=== PATIENT | female | born 1945 | race Caucasian/White ===

== ENCOUNTER 2016-12-17 21:48 | Inpatient (IN) | payer MEDICARE ==
[2016-12-17] MEDS ORDERED: SODIUM CHLORIDE 0.9% 500 ML IV STA (22:06)
[2016-12-17 22:44] LABS: Basophils # (A) 0.1 k/uL (0-0.2); Basophils % (A) 1 %; CH 31.3; CHCM 34.8; Eosinophils # (A) 0.2 k/uL (0-0.7); Eosinophils % (A) 1 %; HCT 46.3 % (34.0-46.0); HDW 2.27; HGB 15.3 gm/dL (11.4-16.0); Luc # (Auto) 0.19; Luc % (Auto) 2; Lymphocytes # (A) 1.8 k/uL (1.0-4.8); Lymphocytes % (A) 14 %; MCH 29.8 pg (25.0-35.0); MCV 90.4 fL (80.0-100.0); Mean Platelet Volume 6.6; Monocytes # (A) 0.8 k/uL (0-1.0); Monocytes % (A) 6 %; Neutrophils # (A) 9.7 k/uL (1.3-7.7); Neutrophils % (A) 77 %; RBC 5.12 m/uL (3.80-5.40); WBC 12.7 k/uL (3.8-10.6); WBC (Perox) 12.88
[2016-12-17 22:47] LABS: Appearance,Urine Clear (Clear); Bacteria,Urine Rare /hpf; Bilirubin,Urine Negative (Negative); Glucose,Urine (UA) Negative (Negative); Ketones,Urine Trace (Negative); Leukocyte Esterase,Urine Large (Negative); Mucus,Urine Rare /hpf; Nitrite,Urine Negative (Negative); Particle Count 1106; Protein,Urine Negative (Negative); RBC,Urine 1 /hpf (0-5); Specific Gravity,Urine 1.007 (1.001-1.035); Squamous Epithelial Cell,Urine <1 /hpf (0-4); UA Billing (MACRO vs. MICRO) MICRO; Urobilinogen,Urine <2.0 mg/dL (<2.0); WBC,Urine 33 /hpf (0-5)
--- NOTE | 2016-12-17 22:50 | XR ---
EXAM: XR KUB, 1 View CLINICAL HISTORY: Reason: abdominal pain TECHNIQUE: Frontal supine view of the abdomen/pelvis. COMPARISON: No relevant prior studies available. FINDINGS: Gastrointestinal tract: Unremarkable. No dilation. No abnormal abdominal calcifications. Bones/joints: Unremarkable. IMPRESSION: Normal KUB x-ray.
[2016-12-17] MEDS ORDERED: RX INFO: IV CONTRAST WAS GIVEN 1 EACH MISC MISCELLANE PRN (22:53)
--- NOTE | 2016-12-17 22:53 | ED ---
Abdominal Pain HPI - General Source: patient, RN notes reviewed Mode of arrival: ambulatory Limitations: no limitations <Garcia Alcantar - Last Filed: 12/18/16 00:54> <Nabil Khan - Last Filed: 12/18/16 01:16> - General Chief Complaint: Abdominal Pain Stated Complaint: Abd Pain Time Seen by Provider: 12/17/16 22:01 - History of Present Illness Initial Comments: This a 71-year-old female presents emergency Department chief complaint abdominal pain. Patient states she's had increase abdominal pain over the last 5 days. Patient states she has not had a bowel movement. Patient also has some urinary frequency. Patient's had a prior partial hysterectomy but no other abdominal surgeries. Patient denies fever or chills. She states she has upper abdominal pain this time. Patient states nothing since make her symptoms better or worse. She states the pain slightly radiates back and up. Patient denies any shortness breath, headache, dizziness. (Garcia Alcantar) - Related Data Home Medications Medication Instructions Recorded Confirmed Ibuprofen [Motrin] 200 mg PO Q6HR PRN 12/17/16 12/17/16 Allergies Allergy/AdvReac Type Severity Reaction Status Date / Time No Known Allergies Allergy Verified 12/17/16 21:59 Review of Systems ROS Other: All systems not noted in ROS Statement are negative. <Garcia Alcantar - Last Filed: 12/18/16 00:54> ROS Other: All systems not noted in ROS Statement are negative. <Nabil Khan - Last Filed: 12/18/16 01:16> ROS Statement: Those systems with pertinent positive or pertinent negative responses have been documented in the HPI. Past Medical History Past Medical History: No Reported History History of Any Multi-Drug Resistant Organisms: None Reported Past Surgical History: Hysterectomy Past Psychological History: No Psychological Hx Reported Smoking Status: Never smoker Past Alcohol Use History: None Reported Past Drug Use History: None Reported <Garcia Alcantar - Last Filed: 12/18/16 00:54> General Exam Limitations: no limitations General appearance: alert, in no apparent distress Head exam: Present: atraumatic, normocephalic, normal inspection Respiratory exam: Present: normal lung sounds bilaterally. Absent: respiratory distress, wheezes, rales, rhonchi, stridor Cardiovascular Exam: Present: regular rate, normal rhythm, normal heart sounds. Absent: systolic murmur, diastolic murmur, rubs, gallop, clicks GI/Abdominal exam: Present: soft, tenderness (Mild to moderate epigastric and right upper quadrant tenderness), normal bowel sounds. Absent: distended, guarding, rebound, rigid Back exam: Absent: CVA tenderness (R), CVA tenderness (L) Neurological exam: Present: alert, oriented X3, CN II-XII intact Skin exam: Present: warm, dry, intact, normal color. Absent: rash <Garcia Alcantar - Last Filed: 12/18/16 00:54> Course <Garcia Alcantar - Last Filed: 12/18/16 00:54> <Nabil Khan - Last Filed: 12/18/16 01:16> Vital Signs 12/17/16 12/17/16 21:51 23:40 Temperature 98.2 F 98.1 F Pulse Rate 78 77 Respiratory 20 16 Rate Blood Pressure 162/84 148/68 O2 Sat by Pulse 98 98 Oximetry - Reevaluation(s) Reevaluation #1: 12/18/16 00:31 At this point patient does have what appears to be acute cholecystitis with elevated white count and respirations greater than 20. Patient was started on antibiotics for possible sepsis. Lactic acid and blood culture will be obtained (Garcia Alcantar) 12/18/16 01:15 Patient reevaluated by myself, Dr. Khan. Patient does have mild epigastric/ right upper quadrant tenderness on exam. No guarding. Case discussed in detail with Dr. Barnett including CT results who will admit for Dr. Echols. IV antibiotics will be started. Patient updated. (Nabil Khan) Medical Decision Making - Lab Data Result diagrams: 12/17/16 22:30 12/17/16 22:30 <Garcia Alcantar - Last Filed: 12/18/16 00:54> - Lab Data Result diagrams: 12/17/16 22:30 12/17/16 22:30 <Nabil Khan - Last Filed: 12/18/16 01:16> - Lab Data Lab Results 12/17/16 12/17/16 12/17/16 Range/Units 22:30 22:30 22:30 WBC 12.7 H (3.8-10.6) k/uL RBC 5.12 (3.80-5.40) m/uL Hgb 15.3 (11.4-16.0) gm/dL Hct 46.3 H (34.0-46.0) % MCV 90.4 (80.0-100.0) fL MCH 29.8 (25.0-35.0) pg MCHC 33.0 (31.0-37.0) g/dL RDW 13.0 (11.5-15.5) % Plt Count 1016 H* (150-450) k/uL Neutrophils % 77 % Lymphocytes % 14 % Monocytes % 6 % Eosinophils % 1 % Basophils % 1 % Neutrophils # 9.7 H (1.3-7.7) k/uL Lymphocytes # 1.8 (1.0-4.8) k/uL Monocytes # 0.8 (0-1.0) k/uL Eosinophils # 0.2 (0-0.7) k/uL Basophils # 0.1 (0-0.2) k/uL Sodium 135 L (137-145) mmol/L Potassium 4.8 (3.5-5.1) mmol/L Chloride 103 (98-107) mmol/L Carbon Dioxide 22 (22-30) mmol/L Anion Gap 10 mmol/L BUN 11 (7-17) mg/dL Creatinine 0.80 (0.52-1.04) mg/dL Est GFR (MDRD) Af Amer >60 (>60 ml/min/1.73 sqM) Est GFR (MDRD) Non-Af >60 (>60 ml/min/1.73 sqM) Glucose 111 H (74-99) mg/dL Calcium 9.9 (8.4-10.2) mg/dL Total Bilirubin 0.7 (0.2-1.3) mg/dL AST 24 (14-36) U/L ALT 32 (9-52) U/L Alkaline Phosphatase 97 (38-126) U/L Troponin I <0.012 (0.000-0.034) ng/mL Total Protein 7.1 (6.3-8.2) g/dL Albumin 4.1 (3.5-5.0) g/dL Amylase 74 (30-110) U/L Lipase 167 (23-300) U/L Urine Color Urine Appearance (Clear) Urine pH (5.0-8.0) Ur Specific [place] (1.001-1.035) Urine Protein (Negative) Urine Glucose (UA) (Negative) Urine Ketones (Negative) Urine Blood (Negative) Urine Nitrite (Negative) Urine Bilirubin (Negative) Urine Urobilinogen (<2.0) mg/dL Ur Leukocyte Esterase (Negative) Urine RBC (0-5) /hpf Urine WBC (0-5) /hpf Ur Squamous Epith Cells (0-4) /hpf Urine Bacteria (None) /hpf Urine Mucus (None) /hpf 12/17/16 Range/Units 22:30 WBC (3.8-10.6) k/uL RBC (3.80-5.40) m/uL Hgb (11.4-16.0) gm/dL Hct (34.0-46.0) % MCV (80.0-100.0) fL MCH (25.0-35.0) pg MCHC (31.0-37.0) g/dL RDW (11.5-15.5) % Plt Count (150-450) k/uL Neutrophils % % Lymphocytes % % Monocytes % % Eosinophils % % Basophils % % Neutrophils # (1.3-7.7) k/uL Lymphocytes # (1.0-4.8) k/uL Monocytes # (0-1.0) k/uL Eosinophils # (0-0.7) k/uL Basophils # (0-0.2) k/uL Sodium (137-145) mmol/L Potassium (3.5-5.1) mmol/L Chloride (98-107) mmol/L Carbon Dioxide (22-30) mmol/L Anion Gap mmol/L BUN (7-17) mg/dL Creatinine (0.52-1.04) mg/dL Est GFR (MDRD) Af Amer (>60 ml/min/1.73 sqM) Est GFR (MDRD) Non-Af (>60 ml/min/1.73 sqM) Glucose (74-99) mg/dL Calcium (8.4-10.2) mg/dL Total Bilirubin (0.2-1.3) mg/dL AST (14-36) U/L ALT (9-52) U/L Alkaline Phosphatase (38-126) U/L Troponin I (0.000-0.034) ng/mL Total Protein (6.3-8.2) g/dL Albumin (3.5-5.0) g/dL Amylase (30-110) U/L Lipase (23-300) U/L Urine Color Light Yellow Urine Appearance Clear (Clear) Urine pH 6.0 (5.0-8.0) Ur Specific [place] 1.007 (1.001-1.035) Urine Protein Negative (Negative) Urine Glucose (UA) Negative (Negative) Urine Ketones Trace H (Negative) Urine Blood Negative (Negative) Urine Nitrite Negative (Negative) Urine Bilirubin Negative (Negative) Urine Urobilinogen <2.0 (<2.0) mg/dL Ur Leukocyte Esterase Large H (Negative) Urine RBC 1 (0-5) /hpf Urine WBC 33 H (0-5) /hpf Ur Squamous Epith Cells <1 (0-4) /hpf Urine Bacteria Rare H (None) /hpf Urine Mucus Rare H (None) /hpf 12/17/16 22:53 EKG performed at 22:30 normal sinus rhythm with a rate of 75 WA interval 136 QRS duration 72 QT/QTC 392/437 (Garcia Alcantar) Disposition Time of Disposition: 00:54 <Garcia Alcantar - Last Filed: 12/18/16 00:54> <Nabil Khan - Last Filed: 12/18/16 01:16> Clinical Impression: Cholecystitis, acute with cholelithiasis Disposition: ADMITTED IP TO THIS [facility] Condition: Fair Referrals: Henry Echols MD [Primary Care Provider] - 1-2 days
[2016-12-17 23:00] LABS: ALT 32 U/L (9-52); AST 24 U/L (14-36); Alkaline Phosphatase 97 U/L (38-126); Amylase 74 U/L (30-110); Anion Gap 10 mmol/L; Blood Urea Nitrogen 11 mg/dL (7-17); Calcium 9.9 mg/dL (8.4-10.2); Carbon Dioxide 22 mmol/L (22-30); Chloride 103 mmol/L (98-107); Glucose 111 mg/dL (74-99); Non-African American GFR(MDRD) >60 (>60 ml/min/1.73 sqM); Potassium 4.8 mmol/L (3.5-5.1); Sodium 135 mmol/L (137-145); Total Bilirubin 0.7 mg/dL (0.2-1.3); Total Protein 7.1 g/dL (6.3-8.2)
--- NOTE | 2016-12-18 00:09 | CT ---
EXAM: CT Abdomen and Pelvis With Intravenous Contrast CLINICAL HISTORY: Reason: Pain TECHNIQUE: Axial computed tomography images of the abdomen and pelvis with intravenous contrast. DLP is 630.40 mGy-cm. This CT exam was performed using one or more of the following dose reduction techniques: automated exposure control, adjustment of the mA and/or kV according to patient size, and/or use of iterative reconstruction technique. COMPARISON: No relevant prior studies available. FINDINGS: Lower thorax: No acute findings. ABDOMEN: Liver: Unremarkable. No mass. Gallbladder and bile ducts: Large 4.1 x 2.6 cm gallstone. The gallbladder is distended. Gallbladder wall thickening noted with possible pericholecystic fluid. Pancreas: Unremarkable. No mass. No ductal dilation. Spleen: Unremarkable. No splenomegaly. Adrenals: Unremarkable. No mass. Kidneys and ureters: Unremarkable. No solid mass. No hydronephrosis. Stomach and bowel: Stool throughout the colon. No obstruction. No mucosal thickening. Appendix: Normal appendix. PELVIS: Bladder: Unremarkable. No mass. Reproductive: Unremarkable as visualized. ABDOMEN and PELVIS: Intraperitoneal space: Unremarkable. No free air. No significant fluid collection. 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 No acute fracture. No dislocation. Soft tissues: Unremarkable. Vasculature: Unremarkable. No abdominal aortic aneurysm. Lymph nodes: Unremarkable. No enlarged lymph nodes. IMPRESSION: Cholelithiasis with gallbladder distention, wall thickening, and possible pericholecystic fluid. Findings suspicious for acute cholecystitis. Correlate clinically.
[2016-12-18] MEDS ORDERED: PIPERACILLIN-TAZOBACTAM 3.375 GM in DEXTROSE/WATER 1 50ML.BAG IVPB STA (00:31)
[2016-12-18] MEDS ORDERED: NALOXONE 0.4 MG/ML 1 ML VIAL IV PRN (00:55)
[2016-12-18] MEDS ORDERED: ONDANSETRON 4 MG/2 ML VIAL IVP STA (01:07)
[2016-12-18] MEDS: SODIUM CHLORIDE 0.9% 1,000 ML IV SCH ×3 (01:11→17:47)
[2016-12-18 01:58] VITALS: BMI 27.6
[2016-12-18] MEDS ORDERED: HYDROmorphone 1 MG/ML 1 ML SYRINGE IVP PRN (05:47)
[2016-12-18] MEDS: PIPERACILLIN-TAZOBACTAM 3.375 GM in DEXTROSE/WATER 1 50ML.BAG IVPB SCH ×3 (07:52→23:38)
[2016-12-18] MEDS: ONDANSETRON 4 MG/2 ML VIAL IVP PRN ×2 (08:59→15:35)
[2016-12-18] MEDS: HEPARIN SODIUM,PORCINE 5,000 UNIT/ML 1 ML VIAL SQ SCH ×3 (09:22→23:38)
[2016-12-18] MEDS ORDERED: METOCLOPRAMIDE 5 MG/ML 2 ML VIAL IVP PRN (09:25)
--- NOTE | 2016-12-18 09:27 | P.GSHP ---
<Radha Tran - Last Filed: 12/18/16 09:11> History of Present Illness H&P Date: 12/18/16 Chief Complaint: Abdominal pain 71-year-old female presented on the day of admission to the emergency room to be evaluated for a chief complaint of having progressive right upper quadrant abdominal pain onset 5 days prior. Patient stated over the last several days the pain in her abdomen had became more symptomatic increased. Patient states she became concerned and presented to the emergency room. Patient denied any fever chills. Patient stated the pain initially occurred in the right upper quadrant of the abdomen radiating across to the right upper chest Patient stated there was a sensation of nausea no active emesis. . Denied any shortness of breath dizziness lightheadedness or chest pain when questioning. Patient has no significant past medical history. Patient states she's aware that her platelets have been elevated and she's had a discussion with her primary care provider in the office the decision was to continue to monitor the platelet count Patient states she takes no prescription medication uses [id number] Motrin as needed. Patient's past surgical history of partial hysterectomy. - Review of Systems Comment: Essentially unremarkable except as mentioned in the present illness Past Medical History Past Medical History: No Reported History History of Any Multi-Drug Resistant Organisms: None Reported Past Surgical History: Hysterectomy Past Psychological History: No Psychological Hx Reported Smoking Status: Never smoker Past Alcohol Use History: None Reported Past Drug Use History: None Reported Medications and Allergies Home Medications Medication Instructions Recorded Confirmed Type Ibuprofen [Motrin] 200 mg PO Q6HR PRN 12/17/16 12/17/16 History Allergies Allergy/AdvReac Type Severity Reaction Status Date / Time No Known Allergies Allergy Verified 12/17/16 21:59 Surgical - Exam Vital Signs Temp Pulse Resp BP Pulse Ox 98.2 F 78 20 162/84 98 12/17/16 21:51 12/17/16 21:51 12/17/16 21:51 12/17/16 21:51 12/17/16 21:51 GENERAL APPEARANCE: 71-year-old female patient is alert, oriented 3, in no acute distress. Patient reports having sensation of nausea this morning no emesis VITAL SIGNS: Reviewed HEENT: Head is normocephalic and atraumatic. Pupils are equal and reactive. The nares are patent. Oropharynx is clear without lesions. NECK: Supple without lymphadenopathy. Traches midline. HEART: S1, S2. Regular rate and rhythm. Denying chest pain no murmur noted LUNGS: No crackles or wheezes are heard. Adequate air movement bilaterally on room air sats are 97% ABDOMEN: Soft, slight tenderness to the right upper quadrant nondistended with good bowel sounds. No peritoneal signs. No palpable organomegaly or masses. EXTREMITIES: Normal skin color and turgor. No cyanosis, rash, ulceration, clubbing or edema. Radial pedal pulses are 2/4 bilaterally. NEUROLOGICAL: No focal deficits. Strength and sensation are grossly intact. Results - Labs 12/17/16 22:30 12/17/16 22:30 Abnormal Lab Results - Last 24 Hours (Table) 12/17/16 12/17/16 12/17/16 Range/Units 22:30 22:30 22:30 WBC 12.7 H (3.8-10.6) k/uL Hct 46.3 H (34.0-46.0) % Plt Count 1016 H* (150-450) k/uL Neutrophils # 9.7 H (1.3-7.7) k/uL Sodium 135 L (137-145) mmol/L Glucose 111 H (74-99) mg/dL Urine Ketones Trace H (Negative) Ur Leukocyte Esterase Large H (Negative) Urine WBC 33 H (0-5) /hpf Urine Bacteria Rare H (None) /hpf Urine Mucus Rare H (None) /hpf Diabetes panel 12/17/16 Range/Units 22:30 Sodium 135 L (137-145) mmol/L Potassium 4.8 (3.5-5.1) mmol/L Chloride 103 (98-107) mmol/L Carbon Dioxide 22 (22-30) mmol/L BUN 11 (7-17) mg/dL Creatinine 0.80 (0.52-1.04) mg/dL Glucose 111 H (74-99) mg/dL Calcium 9.9 (8.4-10.2) mg/dL AST 24 (14-36) U/L ALT 32 (9-52) U/L Alkaline Phosphatase 97 (38-126) U/L Total Protein 7.1 (6.3-8.2) g/dL Albumin 4.1 (3.5-5.0) g/dL Calcium panel 12/17/16 Range/Units 22:30 Calcium 9.9 (8.4-10.2) mg/dL Albumin 4.1 (3.5-5.0) g/dL Pituitary panel 12/17/16 Range/Units 22:30 Sodium 135 L (137-145) mmol/L Potassium 4.8 (3.5-5.1) mmol/L Chloride 103 (98-107) mmol/L Carbon Dioxide 22 (22-30) mmol/L BUN 11 (7-17) mg/dL Creatinine 0.80 (0.52-1.04) mg/dL Glucose 111 H (74-99) mg/dL Calcium 9.9 (8.4-10.2) mg/dL Adrenal panel 12/17/16 Range/Units 22:30 Sodium 135 L (137-145) mmol/L Potassium 4.8 (3.5-5.1) mmol/L Chloride 103 (98-107) mmol/L Carbon Dioxide 22 (22-30) mmol/L BUN 11 (7-17) mg/dL Creatinine 0.80 (0.52-1.04) mg/dL Glucose 111 H (74-99) mg/dL Calcium 9.9 (8.4-10.2) mg/dL Total Bilirubin 0.7 (0.2-1.3) mg/dL AST 24 (14-36) U/L ALT 32 (9-52) U/L Alkaline Phosphatase 97 (38-126) U/L Total Protein 7.1 (6.3-8.2) g/dL Albumin 4.1 (3.5-5.0) g/dL Assessment and Plan Plan: Impression Present on admission right upper quadrant pain suspect due to acute cholecystitis Present on admission thrombocytosis suspect reactive chronic CAT scan abdomen pelvis showed cholelithiasis with gallbladder distention wall thickening and possible pericholecystic fluid suspicious for acute cholecystitis with a large gallstone noted Present on admission leukocytosis suspect reactive Plan Pain control IV fluid for hydration DVT and GI prophylaxis Continue IV Zosyn as ordered Repeat a CBC in the morning Consult hematology for thrombocytosis Keep nothing by mouth scheduled this morning for a lap possible open cholecystectomy The plan was discussed with the patient questions answered The above impression and plan of care have been discussed and directed by signing physician. Radha Tran nurse practitioner acting as scribe for signing physician. Time with Patient: Greater than 30 <Kansakar,Cyndi - Last Filed: 12/18/16 09:40> Surgical - Exam Vital Signs Temp Pulse Resp BP Pulse Ox 98.2 F 78 20 162/84 98 12/17/16 21:51 12/17/16 21:51 12/17/16 21:51 12/17/16 21:51 12/17/16 21:51 Results - Labs 12/17/16 22:30 12/17/16 22:30 Abnormal Lab Results - Last 24 Hours (Table) 12/17/16 12/17/16 12/17/16 Range/Units 22:30 22:30 22:30 WBC 12.7 H (3.8-10.6) k/uL Hct 46.3 H (34.0-46.0) % Plt Count 1016 H* (150-450) k/uL Neutrophils # 9.7 H (1.3-7.7) k/uL Sodium 135 L (137-145) mmol/L Glucose 111 H (74-99) mg/dL Urine Ketones Trace H (Negative) Ur Leukocyte Esterase Large H (Negative) Urine WBC 33 H (0-5) /hpf Urine Bacteria Rare H (None) /hpf Urine Mucus Rare H (None) /hpf Diabetes panel 12/17/16 Range/Units 22:30 Sodium 135 L (137-145) mmol/L Potassium 4.8 (3.5-5.1) mmol/L Chloride 103 (98-107) mmol/L Carbon Dioxide 22 (22-30) mmol/L BUN 11 (7-17) mg/dL Creatinine 0.80 (0.52-1.04) mg/dL Glucose 111 H (74-99) mg/dL Calcium 9.9 (8.4-10.2) mg/dL AST 24 (14-36) U/L ALT 32 (9-52) U/L Alkaline Phosphatase 97 (38-126) U/L Total Protein 7.1 (6.3-8.2) g/dL Albumin 4.1 (3.5-5.0) g/dL Calcium panel 12/17/16 Range/Units 22:30 Calcium 9.9 (8.4-10.2) mg/dL Albumin 4.1 (3.5-5.0) g/dL Pituitary panel 12/17/16 Range/Units 22:30 Sodium 135 L (137-145) mmol/L Potassium 4.8 (3.5-5.1) mmol/L Chloride 103 (98-107) mmol/L Carbon Dioxide 22 (22-30) mmol/L BUN 11 (7-17) mg/dL Creatinine 0.80 (0.52-1.04) mg/dL Glucose 111 H (74-99) mg/dL Calcium 9.9 (8.4-10.2) mg/dL Adrenal panel 12/17/16 Range/Units 22:30 Sodium 135 L (137-145) mmol/L Potassium 4.8 (3.5-5.1) mmol/L Chloride 103 (98-107) mmol/L Carbon Dioxide 22 (22-30) mmol/L BUN 11 (7-17) mg/dL Creatinine 0.80 (0.52-1.04) mg/dL Glucose 111 H (74-99) mg/dL Calcium 9.9 (8.4-10.2) mg/dL Total Bilirubin 0.7 (0.2-1.3) mg/dL AST 24 (14-36) U/L ALT 32 (9-52) U/L Alkaline Phosphatase 97 (38-126) U/L Total Protein 7.1 (6.3-8.2) g/dL Albumin 4.1 (3.5-5.0) g/dL Assessment and Plan Plan: Patient examined. Plan for lap rajiv possible open. Chronic thrombocytosis.Hematology consult.VTE prophylaxis
[2016-12-18] MEDS: PANTOPRAZOLE 40 MG/10 ML VIAL IVP SCH (09:46)
[2016-12-18] MEDS ORDERED: IV FLUID CONTINUATION 1,000 ML IV ONE (09:59)
[2016-12-18] MEDS ORDERED: DEXAMETHASONE SOD PHOS (MDV) 100 MG/10 ML VIAL IVP ONE (10:06)
[2016-12-18] MEDS ORDERED: PROPOFOL 10 MG/ML 20 ML VIAL IV ONE (10:30)
[2016-12-18] MEDS ORDERED: GLYCOPYRROLATE 0.2 MG/ML 2 ML VIAL ONE (10:30)
[2016-12-18] MEDS ORDERED: SUCCINYLCHOLINE CHLORIDE 100 MG/5 ML SYR IV ONE (10:30)
[2016-12-18] MEDS ORDERED: fentaNYL (PF) 50 MCG/ML 2 ML AMP ONE (10:30)
[2016-12-18] MEDS ORDERED: NEOSTIGMINE 1 MG/ML 10 ML VIAL ONE (10:30)
[2016-12-18] MEDS ORDERED: ROCURONIUM BROMIDE 10 MG/ML 10 ML VIAL IV ONE (10:30)
[2016-12-18] MEDS ORDERED: KETOROLAC 30 MG/ML 1 ML VIAL ONE (10:30)
[2016-12-18] MEDS ORDERED: MIDAZOLAM 2 MG/2 ML VIAL ONE (10:30)
[2016-12-18] MEDS ORDERED: LIDOCAINE 1% INJ 10MG/ML (20 ML MDV) ONE (10:30)
[2016-12-18] MEDS ORDERED: LACTATED RINGERS 1,000 ML IV ONE (10:40)
[2016-12-18] MEDS ORDERED: BUPIVACAIN-EPI 0.5%-1:200,000 30 ML VIAL SQ ONE (10:55)
[2016-12-18] MEDS ORDERED: HYDROcodone/APAP 5-325MG 1 EACH TAB PO PRN (16:42)
[2016-12-19] MEDS: SODIUM CHLORIDE 0.9% 1,000 ML IV SCH ×2 (01:41→08:03)
[2016-12-19] MEDS: PIPERACILLIN-TAZOBACTAM 3.375 GM in DEXTROSE/WATER 1 50ML.BAG IVPB SCH (07:46)
[2016-12-19] MEDS: HEPARIN SODIUM,PORCINE 5,000 UNIT/ML 1 ML VIAL SQ SCH (07:46)
[2016-12-19] MEDS: PANTOPRAZOLE 40 MG/10 ML VIAL IVP SCH (07:46)
[2016-12-19 07:48] LABS: CHCM 33.4; HCT 36.5 % (34.0-46.0); HDW 2.28; HGB 12.6 gm/dL (11.4-16.0); MCH 32.4 pg (25.0-35.0); MCHC 34.7 g/dL (31.0-37.0); MCV 93.4 fL (80.0-100.0); Mean Platelet Volume 6.8; RBC 3.91 m/uL (3.80-5.40); RDW 12.8 % (11.5-15.5); WBC 12.6 k/uL (3.8-10.6)
[2016-12-19 07:58] VITALS: BP 126/56; PULSE 100; RESP 13; TEMP 97.4
--- NOTE | 2016-12-19 08:28 | P.DS ---
Providers Date of admission: 12/18/16 01:15 Attending physician: Cyndi Barnett Consults: 12/18/16 09:14 Consult Physician Urgent Consulting Provider: Emeterio Hall Consult Reason/Comments: Elevated platelet count Do you want consulting provider notified?: Yes Primary care physician: Henry Echols [facility] Course: 71 female admitted to the emergency room to be evaluated for chief complaint of having progressive right upper quadrant pain onset 5 days prior. Patient stated the pain became more symptomatic. A sensation of nausea no active emesis no fever chills.. Patient has no significant past medical history except that she states "been told my platelets have been elevated in the past. , On admission the platelets were 1016. Consultation was requested Dr. Hall hematology did evaluate the patient with recommendations aspirin 81 mg daily patient was admitted to the services of the attending. Patient is a CAT scan of the abdomen pelvis did show cholelithiasis with gallbladder distention wall thickening possible pericholecystic fluid suspicious for acute cholecystitis with a large gallstone noted. Patient elected to proceed with a lap cholecystectomy done on the 18 of December. There were no postop events. Impression discharge diagnosis Present on admission right upper quadrant pain suspect due to acute cholecystitis Present on admission thrombocytosis suspect reactive chronic CAT scan abdomen pelvis showed cholelithiasis with gallbladder distention wall thickening and possible pericholecystic fluid suspicious for acute cholecystitis with a large gallstone noted Present on admission leukocytosis suspect reactive Status post December 18 laparoscopic cholecystectomy The above impression and plan of care have been discussed and directed by signing physician. Radha Tran nurse practitioner acting as scribe for signing physician. Patient Condition at Discharge: Fair Plan - Discharge Summary New Discharge Prescriptions: New Aspirin [Adult Low Dose Aspirin EC] 81 mg PO DAILY #30 tablet. Continue Ibuprofen [Motrin] 200 mg PO Q6HR PRN PRN Reason: Pain Discharge Medication List Ibuprofen [Motrin] 200 mg PO Q6HR PRN 12/17/16 [History] Aspirin [Adult Low Dose Aspirin EC] 81 mg PO DAILY #30 tablet. 12/19/16 [Rx] Follow up Appointment(s)/Referral(s): Henry Echols MD [Primary Care Provider] - 1-2 days Emeterio Hall MD [STAFF PHYSICIAN] - 1 Week Cyndi Barnett MD [STAFF PHYSICIAN] - 2 Weeks Activity/Diet/Wound Care/Special Instructions: No lifting over 10 pounds Shower daily No tub baths Notified attending of any redness abdominal pain fever chills Discharge Disposition: HOME SELF-CARE
--- NOTE | 2016-12-20 01:08 | P.CONS ---
History of Present Illness - Reason for Consult Consult date: 12/19/16 Elevated platelet count - History of Present Illness The patient is a 71-year-old lady, overall in good health. She was admitted to the hospital on 12/17/16, with complains of right upper abdominal pain that started about 5-6 days ago. This had progressively gotten worse, causing her to come to the emergency room. Abdominal imaging was suggestive of cholecystitis. The patient's CBC revealed a platelet count of greater than 1 million. She underwent cholecystectomy which she tolerated well. The consult was placed for evaluation of the elevated platelet count. The patient states that her platelets have been elevated now for several months at least. She is not aware of the exact value but had discussed this with her PCP and had opted for monitoring alone. She denies any history of venous or arterial thrombo embolism, or unusual bleeding/bruising. Review of Systems Constitutional: Denies chills, Denies fever Eyes: denies blurred vision, denies pain Ears: deny: decreased hearing, ear discharge, earache, tinnitus Ears, nose, mouth and throat: Denies headache, Denies sore throat Cardiovascular: Denies chest pain, Denies shortness of breath Respiratory: Denies cough Gastrointestinal: Reports as per HPI, Reports abdominal pain, Reports dyspepsia (Mild indigestion symptoms, off and on for some months now.) Genitourinary: Denies dysuria, Denies hematuria Menstruation: Reports postmenopausal Musculoskeletal: Denies myalgias Integumentary: Denies pruritus, Denies rash Neurological: Denies numbness, Denies weakness Psychiatric: Denies anxiety, Denies depression Endocrine: Denies fatigue, Denies weight change Hematologic/Lymphatic: Reports as per HPI Past Medical History Past Medical History: No Reported History History of Any Multi-Drug Resistant Organisms: None Reported Past Surgical History: Hysterectomy Past Psychological History: No Psychological Hx Reported Smoking Status: Never smoker Past Alcohol Use History: None Reported Past Drug Use History: None Reported Medications and Allergies Home Medications Medication Instructions Recorded Confirmed Type Ibuprofen [Motrin] 200 mg PO Q6HR PRN 12/17/16 12/17/16 History Aspirin [Adult Low Dose Aspirin EC] 81 mg PO DAILY #30 tablet. 12/19/16 Rx Allergies Allergy/AdvReac Type Severity Reaction Status Date / Time No Known Allergies Allergy Verified 12/17/16 21:59 Physical Exam Vitals: Vital Signs Temp Pulse Pulse Pulse Resp BP Pulse Ox 12/19/16 08:49 100 12/19/16 07:56 97.4 F L 100 13 126/56 12/19/16 00:28 96.1 F L 79 16 132/62 97 12/18/16 20:10 97.0 F L 68 16 140/65 99 12/18/16 14:45 66 16 105/55 95 12/18/16 14:30 65 16 125/59 98 12/18/16 14:15 59 L 16 105/65 98 12/18/16 14:00 64 16 113/72 98 12/18/16 13:45 62 16 108/65 100 12/18/16 13:30 57 L 16 116/68 99 12/18/16 13:15 63 16 123/54 97 12/18/16 13:00 97.7 F 61 16 142/88 93 L 12/18/16 12:45 72 18 160/71 100 12/18/16 12:31 18 149/67 97 12/18/16 12:16 56 L 16 111/56 100 12/18/16 12:01 98.0 F 72 14 111/54 100 12/18/16 10:01 97.5 F L 64 18 130/67 96 12/18/16 09:30 97.4 F L 63 15 110/66 99 Intake and Output 12/18/16 12/19/16 12/19/16 22:59 06:59 14:59 Intake Total 500 1500 Balance 500 1500 Intake: Intake, IV Titration 1000 Amount Sodium Chloride 0.9% 1, 1000 000 ml @ 125 mls/hr IV . Q8H [facility] Rx#:[id number] Oral 500 500 Other: Voiding Method Toilet # Voids 1 2 - Constitutional General appearance: no acute distress - EENT Eyes: EOMI, PERRLA ENT: hearing grossly normal, normal oropharynx - Neck Neck: no lymphadenopathy - Respiratory Respiratory: bilateral: CTA - Cardiovascular Rhythm: regular Heart sounds: normal: S1, S2 - Gastrointestinal General gastrointestinal: normal bowel sounds, soft - Integumentary Integumentary: normal - Neurologic Neurologic: CNII-XII intact - Musculoskeletal Musculoskeletal: strength equal bilaterally - Psychiatric Psychiatric: A&O x's 3, appropriate affect Results CBC & Chem 7: 12/19/16 07:17 12/17/16 22:30 Labs: Abnormal Lab Results - Last 24 Hours (Table) 12/19/16 Range/Units 07:17 WBC 12.6 H (3.8-10.6) k/uL Plt Count 737 H (150-450) k/uL Microbiology - Last 24 Hours (Table) 12/18/16 01:01 Blood Culture - Preliminary Blood No Growth after 24 hours Abdominal x-ray: report reviewed CT scan - pelvis: report reviewed US - abdomen: report reviewed Assessment and Plan (1) Thrombocytosis Narrative/Plan: The patient has fairly profound thrombocytosis. According to her this has been present now for several months at least as she is not aware of her values in the outpatient setting. Those are not available to us at this time either. The possible differential discussed in detail with her. Persistent thrombocytosis were several months with no apparent cause, as most suggestive for a primary myeloproliferative disorder, specifically Essential thrombocytosis. It was discussed with her, that though technically of malignancy, this is fairly easy to treat. With platelet lowering therapy and antiplatelet agents, the main morbidity which is due to thrombolysis on can be drastically reduced. She was therefore willing for further workup to try to establish the diagnosis. This will be done as an outpatient. Requisition for Yariel-2 mutation testing, and iron studies were given to her. She will follow-up in the office in the next 2-3 weeks. In the meantime she will start on baby aspirin. Her platelet count has already started dropping into the 700 range, and was 737 today. It is possible that her baseline platelet counts are lower than her current values, and the present increases transient, from her baseline, due to cholecystitis and surgery. Even if essential thrombocytosis is confirmed, the patient may not need specific platelet lowering therapy, if her baseline counts are less than 6 -700 , but can be managed with antiplatelet agent alone Status: Acute Plan: Case was clinically discussed with the admitting service. From our Standpoint the patient is okay to be discharged, on baby aspirin.
[2016-12-20] MEDS ORDERED: PANTOPRAZOLE 40 MG TABLET PO SCH (07:30)
--- NOTE | 2017-01-18 12:45 | P.OP ---
Date of Procedure: 12/18/16 Preoperative Diagnosis: Acute on chronic calculous cholecystitis Postoperative Diagnosis: Same Procedure(s) Performed: Laparoscopic cholecystectomy Anesthesia: YAS, local Surgeon: Cyndi Barnett Pathology: other Condition: stable Disposition: PACU Indications for Procedure: 71 years old female presents with acute on chronic cholecystitis. Informed consent obtained for laparoscopic cholecystectomy possible open. Operative Findings: Acute on chronic cholecystitis Description of Procedure: The patient was brought to the operating room and placed in supine position with both arms out. General anesthesia with endotracheal intubation was performed as per anesthesia team. Chlorhexidine was used to prep the abdomen followed by application of sterile drapes. A timeout was performed to verify correct patient and correct procedure. Patient was confirmed to receive perioperative IV antibiotics , heparin 5000 units subcutaneous injection and bilateral SCDs were placed. A 5 mm skin incision was made below the left costal margin at the anterior axillary line. A Veress needle was inserted and pneumoperitoneum was established to a pressure of 15 mmHg. A 5 mm Optiview trocar was loaded on a 5 mm 30 laparoscope and the peritoneal cavity was entered under direct vision using the Optiview technique. Additional 5 mm trocar was placed in the supraumbilical location and two 5 mm trocars along the right subcostal margin. The left 5 mm trocar was upsized to 10mm. The patient was placed in reverse Trendelenburg with right side up. The fundus of the gallbladder was grasped with an atraumatic grasper and was retracted over the dome of the liver. The infundibulum was grasped with an atraumatic grasper and retracted towards the pelvis to expose the Calot's triangle. Lateral and medial peritoneal attachment of the gallbladder bladder was dissected. Circumferential dissection was carried out around the cystic artery and the cystic duct to obtain adequate length for clip application. All the surrounding fibrofatty tissue were removed. Critical view was obtained with cystic duct and cystic artery as the only two structures entering the gallbladder. Two clips were applied on the patient's side and one on the specimen side on the cystic duct first followed by the cystic artery. Endoshears were used to divide the cystic duct and the cystic artery. The gallbladder was taken off the liver bed using a L-hook. It was placed in an endocatch specimen bag and removed through the 10mm port. The gallbladder was passed off as a specimen. The abdominal cavity was inspected. The clips on the cystic duct and cystic artery stump were intact and no bleeding noted from the liver bed. All the trocar sites were examined and no evidence of bleeding. The 10mm port site was closed with two transfascial sutures of 0 Vicryl using a Richard Naomi device. The pneumoperitoneum was evacuated and all the trocars were removed. Local anesthetic was infiltrated along the trocar sites and incisions were closed using 4-0 Monocryl followed by application of Dermabond skin glue. The sponge, instrument and needle count were correct x2. Patient was extubated and taken to post anesthesia care unit in stable condition.
== END 2016-12-19 12:41 | disposition home or self-care (01) | DRG 419 ==
LOC: EC 21:48 → 3SUR 12-18 01:15
PROVIDERS: ADMIT Surgery; ATTEND Surgery
PROC: 0FT44ZZ Resection of Gallbladder, Percutaneous Endoscopic Approach (ICD-10-PCS; principal; 2016-12-18 12:10)
DX: K80.00 Calculus of gallbladder with acute cholecystitis without obstruction (principal); D75.89 Other specified diseases of blood and blood-forming organs; Z90.710 Acquired absence of both cervix and uterus; Z79.82 Long term (current) use of aspirin; Z79.1 Long term (current) use of non-steroidal anti-inflammatories (NSAID)
CPT/HCPCS: 36415; 74000; 74177; 80053; 81001; 82150; 83605; 83690; 84484; 85025; 85027; 87040; 88304; 93005; 96365; 96375; 99285

== ENCOUNTER → 2016-12-25 | Outpatient (CLI) | payer MEDICARE ==
[2016-12-25 16:18] LABS: Basophils # (A) 0.1 k/uL (0-0.2); Basophils % (A) 1 %; CHCM 32.3; Eosinophils # (A) 0.2 k/uL (0-0.7); Eosinophils % (A) 3 %; HCT 45.2 % (34.0-46.0); HDW 2.26; HGB 14.9 gm/dL (11.4-16.0); Luc # (Auto) 0.16; Luc % (Auto) 2; Lymphocytes # (A) 1.8 k/uL (1.0-4.8); Lymphocytes % (A) 21 %; MCH 30.7 pg (25.0-35.0); Mean Platelet Volume 6.2; Monocytes # (A) 0.5 k/uL (0-1.0); Monocytes % (A) 5 %; Neutrophils # (A) 5.9 k/uL (1.3-7.7); Neutrophils % (A) 68 %; RBC 4.86 m/uL (3.80-5.40); RDW 12.6 % (11.5-15.5); WBC 8.6 k/uL (3.8-10.6); WBC (Perox) 8.69
[2016-12-25 16:22] LABS: ALT 61 U/L (9-52); AST 34 U/L (14-36); Alkaline Phosphatase 93 U/L (38-126); Amylase 82 U/L (30-110); Anion Gap 11 mmol/L; Blood Urea Nitrogen 9 mg/dL (7-17); Carbon Dioxide 24 mmol/L (22-30); Chloride 103 mmol/L (98-107); Glucose 113 mg/dL (74-99); Non-African American GFR(MDRD) >60 (>60 ml/min/1.73 sqM); Potassium 4.6 mmol/L (3.5-5.1); Sodium 138 mmol/L (137-145); Total Bilirubin 0.3 mg/dL (0.2-1.3); Total Protein 7.1 g/dL (6.3-8.2)
== END | disposition home or self-care (01) ==
LOC: LABWHC1 15:25
PROVIDERS: ATTEND Physician Assistant
DX: D47.3 Essential (hemorrhagic) thrombocythemia (principal); K80.80 Other cholelithiasis without obstruction
CPT/HCPCS: 36415; 80053; 81270; 82150; 82728; 83690; 85025

== ENCOUNTER 2019-08-15 09:33 | Emergency (ER) | payer MEDICARE ==
[2019-08-15 09:43] VITALS: BP 136/75; PULSE 93; RESP 18; TEMP 97.6
--- NOTE | 2019-08-15 10:05 | ED ---
Upper Extremity HPI - General Chief Complaint: Extremity Injury, Upper Stated Complaint: pain in L arm -shoulder to wrist Time Seen by Provider: 08/15/19 09:45 Source: patient, RN notes reviewed, old records reviewed Mode of arrival: ambulatory Limitations: no limitations - History of Present Illness Initial Comments: Patient is a 73-year-old female presents return states 2 months of left shoulder pain, worse with range of motion of her head. She reports symptoms started after she was moving a window approximately 2 months ago. She stated that she's Lantrip on Sunday and felt that she needed to have any answers questions the pain today. She's been taking Motrin for pain. She initially thought she had tendinitis she also frequently types sitting on her computer frequently. Patient states that she has no chest pain shortness breath nausea or vomiting. - Related Data Home Medications Medication Instructions Recorded Confirmed Ibuprofen [Motrin] 200 mg PO Q6HR PRN 12/17/16 12/17/16 Previous Rx's Medication Instructions Recorded Aspirin [Adult Low Dose Aspirin EC] 81 mg PO DAILY #30 tablet. 12/19/16 Ibuprofen [Motrin] 600 mg PO Q8HR PRN #20 tab 08/15/19 traMADol HCL [Ultram] 50 mg PO Q6HR PRN 3 Days #12 tab 08/15/19 Allergies Allergy/AdvReac Type Severity Reaction Status Date / Time No Known Allergies Allergy Verified 12/17/16 21:59 Review of Systems ROS Statement: Those systems with pertinent positive or pertinent negative responses have been documented in the HPI. ROS Other: All systems not noted in ROS Statement are negative. Past Medical History Past Medical History: No Reported History History of Any Multi-Drug Resistant Organisms: None Reported Past Surgical History: Cholecystectomy, Hysterectomy Past Psychological History: No Psychological Hx Reported Smoking Status: Never smoker Past Alcohol Use History: None Reported Past Drug Use History: None Reported General Exam - General Exam Comments Initial Comments: 73-year-old female. Alert and oriented 3. Patient has no significant distress. Limitations: no limitations General appearance: alert Head exam: Present: atraumatic, normocephalic, normal inspection Eye exam: Present: normal appearance, PERRL, EOMI. Absent: scleral icterus, conjunctival injection, periorbital swelling ENT exam: Present: normal exam, mucous membranes moist Neck exam: Present: normal inspection. Absent: tenderness, meningismus, lymphadenopathy Respiratory exam: Present: normal lung sounds bilaterally. Absent: respiratory distress, wheezes, rales, rhonchi, stridor Cardiovascular Exam: Present: regular rate, normal rhythm, normal heart sounds. Absent: systolic murmur, diastolic murmur, rubs, gallop, clicks GI/Abdominal exam: Present: soft, normal bowel sounds. Absent: distended, tenderness, guarding, rebound, rigid Left Shoulder Exam: Present: normal inspection. Absent: full ROM (Pain with abduction to 90 degress and unable to reach above head) Upper Arm exam: Present: normal inspection, full ROM Elbow exam: Present: normal inspection, full ROM Forearm Wrist exam: Present: normal inspection, full ROM Hand Wrist exam: Present: normal inspection, full ROM Neuro motor exam: Present: wrist extension intact, thumb opposition intact, thumb IP flexion intact, thumb adduction intact, fingers 2-5 abduction intact Back exam: Present: normal inspection Neurological exam: Present: alert, oriented X3, CN II-XII intact Psychiatric exam: Present: normal affect, normal mood Skin exam: Present: warm, dry, intact, normal color. Absent: rash Course Vital Signs 08/15/19 09:35 Temperature 97.6 F Pulse Rate 93 Respiratory 18 Rate Blood Pressure 136/75 O2 Sat by Pulse 100 Oximetry Medical Decision Making - Medical Decision Making Patient is a 73-year-old female presents emergency room today with left shoulder pain for 2 months. Pain is worse with range of motion. Patient reportedly started having pain after moving window. I discussed the pain seems to be muscular skeletal as it is worse with range of motion above her head. Discussed likely concern for rotator cuff injury. Patient's shoulder x-ray does show some glenohumeral joint narrowing. Patient was informed of his results. She does have an appointment in the end of August with orthopedics. I discussed taking anti-inflammatory medication and we'll give the Patient a short course of Ultram for pain at night. Patient is agreeable to treatment plan will comply. Return parameters were discussed. I also discussed avoiding slinging to avoid frozen shoulder syndrome Patient is agreeable to treatment plan will comply. - Radiology Data Radiology results: report reviewed There is no acute fracture dislocation evident left shoulder. Moderate narrowing of the before meals joint with mild to moderate spurring. Slightly downsloping distal acromion noted. Glenohumeral joint shows mild to moderate narrowing. Visualizes ribs are intact and unremarkable. Disposition Clinical Impression: Injury of left rotator cuff, Shoulder joint painful on movement Disposition: HOME SELF-CARE Condition: Good Instructions (If sedation given, give patient instructions): Rotator Cuff Injury (ED) Additional Instructions: Patient advised [facility] with [facility] a scheduled appointment. Patient should practice gentle range of motion of the shoulder to avoid frozen shoulder syndrome. Taking anti-inflammatory medicine as you have been using a short course of pain medicine mainly at night. Patient can return to the emergency department if any alarming signs or symptoms occur. Prescriptions: Ibuprofen [Motrin] 600 mg PO Q8HR PRN #20 tab PRN Reason: Pain traMADol HCL [Ultram] 50 mg PO Q6HR PRN 3 Days #12 tab PRN Reason: Pain Is patient prescribed a controlled substance at d/c from ED?: No Referrals: Henry Echols MD [Primary Care Provider] - 1-2 days Garcia Pederson DO [Doctor of Osteopathic Medicine] - 1-2 days Time of Disposition: 10:20
--- NOTE | 2019-08-15 10:15 | XR ---
EXAMINATION TYPE: XR shoulder complete LT DATE OF EXAM: 08/15/2019 CLINICAL HISTORY: Left shoulder pain. TECHNIQUE: Three views of the left shoulder are obtained. COMPARISON: None. FINDINGS: There is no acute fracture/dislocation evident in the left shoulder. Moderate narrowing a t AC joint with mild to moderate spurring. Slightly downsloping distal acromion noted. Glenohumeral joint shows mild to moderate narrowing. The visualized ribs are intact and unremarkable. IMPRESSION: As above.
== END 2019-08-15 10:45 | disposition home or self-care (01) ==
LOC: EC 09:33
DX: S46.002A Unspecified injury of muscle(s) and tendon(s) of the rotator cuff of left shoulder, initial encounter (principal); X58.XXXA Exposure to other specified factors, initial encounter
CPT/HCPCS: 99284

== ENCOUNTER → 2020-01-27 | Outpatient (CLI) | payer MEDICARE ==
[2020-01-27 13:36] VITALS: BP 174/88; PULSE 88; RESP 18; TEMP 98.3
--- NOTE | 2020-01-27 15:14 | P.HPOB ---
History of Present Illness H&P Date: 01/27/20 Chief Complaint: The patient is here for her routine gynecologic exam. This is a 74-year-old with an LMP of 2009. The patient is here to establish with this office. It has been about 5 years since her last pelvic exam. She previously saw Dr. Pelaez for her gynecologic exams. She is status post vaginal hysterectomy done for benign reasons. Her sister was recently diagnosed with ovarian cancer. She is without gynecologic complaints. Review of Systems Her weight has been stable.. She denies respiratory, cardiac and G.I. problems. She denies maltreatment or problems with falling. : she denies any significant problems with urinary leakage. Past Medical History Past Medical History: No Reported History Additional Past Medical History / Comment(s): PAST MATERIALS MANAGEMENT MANAGER HISTORY: She has no history of STDs. History of Any Multi-Drug Resistant Organisms: None Reported Past Surgical History: Cholecystectomy, Hysterectomy Additional Past Surgical History / Comment(s): Vaginal hysterectomy for prolapse in 2009. Colonoscopy 2009. Past Psychological History: No Psychological Hx Reported Smoking Status: Never smoker Past Alcohol Use History: None Reported Past Drug Use History: None Reported Additional History: She has been since 1970 and is not seeing anybody at this time and is not sexually active. 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 - Past Family History Father Family Medical History: Myocardial Infarction ([place]) Mother Additional Family Medical History / Comment(s): Heart condition that requires a pacemaker. Sister(s) Family Medical History: Cancer Additional Family Medical History / Comment(s): Heart problems. Ovarian cancer. Medications and Allergies Home Medications Medication Instructions Recorded Confirmed Type Ibuprofen [Motrin] 200 mg PO Q6HR PRN 12/17/16 01/27/20 History Cholecalciferol [Vitamin D3 (25 1,000 unit PO DAILY 01/27/20 01/27/20 History Mcg = 1000 Iu)] Wyatt-3 Fatty Acids/Fish Oil 1 each PO DAILY 01/27/20 01/27/20 History [Wyatt-3 Fish Oil 1,200 mg Sfgl] Allergies Allergy/AdvReac Type Severity Reaction Status Date / Time No Known Allergies Allergy Verified 01/27/20 13:29 Exam Vital Signs Temp Pulse Resp BP Pulse Ox 01/27/20 13:34 98.3 F 88 18 174/88 98 Intake and Output 01/27/20 01/27/20 01/27/20 06:59 14:59 22:59 Other: Weight 65.317 kg Height 4 feet 10 inches, weight 144 pounds, BMI 30.1. This is a well-developed well-nourished white female who is alert and oriented times 3 in no acute distress. HEENT: Within normal limits. NECK: Supple without mass or thyromegaly. CHEST AND LUNGS: Clear to auscultation. HEART: Regular rate and rhythm. BREASTS: Are without mass or discharge. AXILLARY EXAM: Negative for adenopathy. BACK: Negative for CVA tenderness. ABDOMEN: Soft, nontender, without palpable masses. PELVIC EXAM: External genitalia appears normal with mild to moderate atrophy. Vagina appears normal is mild to moderate atrophy. There is a grade 2 cystocele noted. There is no other evidence of prolapse. Bimanual examination is negative for mass or tenderness. RECTAL EXAM: Rectovaginal exam is negative for mass or tenderness and is negative for occult blood. EXTREMITIES: Nontender. IMPRESSION: 1. 74-year-old menopausal female status post vaginal hysterectomy for benign reasons with a grade 2 cystocele which is asymptomatic. 2. Family history of ovarian cancer in her sister. 3. Elevated blood pressure. PLAN: 1. Pap smears have been discontinued. 2. Self breast awareness was discussed with the patient. 3. Mammogram is scheduled at [facility] for later today. The patient has an order slip for this from Dr. Echols. 4. I have recommended yearly pelvic ultrasound because of her sisters history of ovarian cancer. The order slip was given to the patient for this. 5. We have discussed her elevated blood pressure. I have recommended that she check her blood pressure on a regular basis and follow-up with Dr. Echols for blood pressure elevations. 6. She was advised to return in one year for her annual well woman exam.
== END | disposition home or self-care (01) ==
LOC: WWCWWP 13:11
PROVIDERS: ATTEND Obstetrics & Gynecology
DX: Z53.9 Procedure and treatment not carried out, unspecified reason (principal)

== ENCOUNTER → 2020-03-05 | Outpatient (CLI) | payer MEDICARE ==
--- NOTE | 2020-03-05 19:45 | US ---
EXAMINATION TYPE: US pelvic complete DATE OF EXAM: 03/05/2020 COMPARISON: CT abdomen and pelvis 2017 CLINICAL HISTORY: Z80.4Family history of malignant neoplasm of ovary. Family HX of ovarian CA TECHNIQUE: Transabdominal (TA). Transabdominal sonographic images of the pelvis were acquired. EXAM MEASUREMENTS: Uterus: Surgically absent cm Endometrial Stripe: Surgically absent cm Right Ovary: 2.2 x 1.7 x 2.0 cm Left Ovary: 2.2 x 1.4 x 1.9 cm 1. Uterus: Surgically absent 2. Endometrium: Surgically absent 3. Right Ovary: wnl 4. Left Ovary: wnl 5. Bilateral Adnexa: wnl 6. Posterior cul-de-sac: wnl Uterus is surgically absent. Visualized portion of the urinary bladder is unremarkable. Ovaries remai n normal in size without suspicious adnexal mass noted. IMPRESSION: Persistent normal-sized ovaries without concerning ovarian or adnexal mass.
== END | disposition home or self-care (01) ==
LOC: RADUSWWP 15:45
PROVIDERS: ATTEND Obstetrics & Gynecology
DX: Z12.73 Encounter for screening for malignant neoplasm of ovary (principal); Z80.41 Family history of malignant neoplasm of ovary
CPT/HCPCS: 76856

== ENCOUNTER 2020-12-12 11:12 | Emergency (ER) | payer MEDICARE ==
[2020-12-12 11:19] VITALS: RESP 16; TEMP 98
[2020-12-12] MEDS ORDERED: hydrALAZINE HCL 20 MG/ML 1 ML VIAL IVP STA (11:36)
--- NOTE | 2020-12-12 11:37 | ED ---
General Adult HPI - General Chief complaint: Recheck/Abnormal Lab/Rx Stated complaint: elevated BP, wants echo Source: patient, RN notes reviewed, old records reviewed Mode of arrival: ambulatory Limitations: no limitations - History of Present Illness Initial comments: This is a 69-year-old female presents emergency Department complaining that her blood pressures been high over the last week. Patient states she is taking it a couple times has been elevated 150 range but the other day in the office when she saw her primary medical care doctor is 170 today was 180 she decided to come to the emergency department. Patient states the only symptom she has a little pulsating feeling in her ears other than that there is no headache there is no numbness weakness. Patient denies any visual disturbance. Patient denies chest pain difficulty breathing or shortness of breath. Patient denies any high blood sugar history. Patient denies any swelling to the legs or calf tenderness. - Related Data Home Medications Medication Instructions Recorded Confirmed Aspirin EC [Ecotrin Low Dose] 81 mg PO DAILY 12/12/20 12/12/20 Cholecalciferol [Vitamin D3 (25 50 mcg PO DAILY 12/12/20 12/12/20 Mcg = 1000 Iu)] Vit C/E/Zn/Coppr/Lutein/Zeaxan 3 cap PO DAILY 12/12/20 12/12/20 [Preservision Areds 2 Softgel] Previous Rx's Medication Instructions Recorded amLODIPine [Norvasc] 5 mg PO DAILY #10 tab 12/12/20 Allergies Allergy/AdvReac Type Severity Reaction Status Date / Time No Known Allergies Allergy Verified 12/12/20 11:58 Review of Systems ROS Statement: Those systems with pertinent positive or pertinent negative responses have been documented in the HPI. ROS Other: All systems not noted in ROS Statement are negative. 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 History of Any Multi-Drug Resistant Organisms: None Reported Past Surgical History: Cholecystectomy, Hysterectomy Additional Past Surgical History / Comment(s): Vaginal hysterectomy for prolapse in 2009. Colonoscopy 2009. Past Psychological History: No Psychological Hx Reported Smoking Status: Never smoker Past Alcohol Use History: None Reported Past Drug Use History: None Reported - Past Family History Father Family Medical History: Myocardial Infarction ([place]) Mother Additional Family Medical History / Comment(s): Heart condition that requires a pacemaker. Sister(s) Family Medical History: Cancer Additional Family Medical History / Comment(s): Heart problems. Ovarian cancer. General Exam - General Exam Comments Initial Comments: GENERAL: Patient is well-developed and well-nourished. Patient is nontoxic and well- hydrated and is in no acute distress. ENT: Neck is soft and supple. No significant lymphadenopathy is noted. Oropharynx is clear. Moist mucous membranes. Neck has full range of motion without eliciting any pain. EYES: The sclera were anicteric and conjunctiva were pink and moist. Extraocular movements were intact and pupils were equal round and reactive to light. Eyelids were unremarkable. PULMONARY: Unlabored respirations. Good breath sounds bilaterally. No audible rales rhonchi or wheezing was noted. CARDIOVASCULAR: There is a regular rate and rhythm without any murmurs gallops or rubs. ABDOMEN: Soft and nontender with normal bowel sounds. SKIN: Skin is clear with no lesions or rashes and otherwise unremarkable. NEUROLOGIC: Patient is alert and oriented x3. Cranial nerves II through XII are grossly intact. Motor and sensory are also intact. Normal speech, volume and content. Symmetrical smile. MUSCULOSKELETAL: Normal extremities with adequate strength and full range of motion. No lower extremity swelling or edema. No calf tenderness. LYMPHATICS: No significant lymphadenopathy is noted PSYCHIATRIC: Patient's mildly anxious Limitations: no limitations Course Vital Signs 12/12/20 12/12/20 11:14 12:24 Temperature 98 F Pulse Rate 105 H 65 Respiratory 16 16 Rate Blood Pressure 186/86 151/63 O2 Sat by Pulse 95 95 Oximetry Medical Decision Making - Medical Decision Making EKG shows normal sinus rhythm at 89 bpm MO interval 146 dresses 76 QT interval 376 QTC is 457. Patient's EKG shows no ST segment elevation or depression. Chest x-ray shows no acute abnormality. Patient received 10 of hydralazine emergency department her blood pressure came down. Patient was asymptomatic on reexamination. - Lab Data Result diagrams: 12/12/20 11:50 12/12/20 11:50 Lab Results 12/12/20 12/12/20 12/12/20 Range/Units 11:50 11:50 11:50 WBC 9.5 (3.8-10.6) k/uL RBC 5.03 (3.80-5.40) m/uL Hgb 15.7 (11.4-16.0) gm/dL Hct 46.9 H (34.0-46.0) % MCV 93.1 (80.0-100.0) fL MCH 31.1 (25.0-35.0) pg MCHC 33.5 (31.0-37.0) g/dL RDW 13.1 (11.5-15.5) % MPV 6.2 PT 10.0 (9.0-12.0) sec INR 0.9 (<1.2) APTT 22.4 (22.0-30.0) sec Sodium 134 L (137-145) mmol/L Potassium 4.5 (3.5-5.1) mmol/L Chloride 102 (98-107) mmol/L Carbon Dioxide 22 (22-30) mmol/L Anion Gap 10 mmol/L BUN 11 (7-17) mg/dL Creatinine 0.74 (0.52-1.04) mg/dL Est GFR (CKD-EPI)AfAm >90 (>60 ml/min/1.73 sqM) Est GFR (CKD-EPI)NonAf 80 (>60 ml/min/1.73 sqM) Glucose 131 H (74-99) mg/dL Calcium 10.2 (8.4-10.2) mg/dL Magnesium 2.2 (1.6-2.3) mg/dL Total Bilirubin 0.3 (0.2-1.3) mg/dL AST 27 (14-36) U/L ALT 22 (4-34) U/L Alkaline Phosphatase 98 (38-126) U/L Troponin I (0.000-0.034) ng/mL Total Protein 7.2 (6.3-8.2) g/dL Albumin 4.3 (3.5-5.0) g/dL 12/12/20 Range/Units 11:50 WBC (3.8-10.6) k/uL RBC (3.80-5.40) m/uL Hgb (11.4-16.0) gm/dL Hct (34.0-46.0) % MCV (80.0-100.0) fL MCH (25.0-35.0) pg MCHC (31.0-37.0) g/dL RDW (11.5-15.5) % MPV PT (9.0-12.0) sec INR (<1.2) APTT (22.0-30.0) sec Sodium (137-145) mmol/L Potassium (3.5-5.1) mmol/L Chloride (98-107) mmol/L Carbon Dioxide (22-30) mmol/L Anion Gap mmol/L BUN (7-17) mg/dL Creatinine (0.52-1.04) mg/dL Est GFR (CKD-EPI)AfAm (>60 ml/min/1.73 sqM) Est GFR (CKD-EPI)NonAf (>60 ml/min/1.73 sqM) Glucose (74-99) mg/dL Calcium (8.4-10.2) mg/dL Magnesium (1.6-2.3) mg/dL Total Bilirubin (0.2-1.3) mg/dL AST (14-36) U/L ALT (4-34) U/L Alkaline Phosphatase (38-126) U/L Troponin I <0.012 (0.000-0.034) ng/mL Total Protein (6.3-8.2) g/dL Albumin (3.5-5.0) g/dL Disposition Clinical Impression: Hypertensive urgency Disposition: HOME SELF-CARE Condition: Good Instructions (If sedation given, give patient instructions): Hypertension (ED) Prescriptions: amLODIPine [Norvasc] 5 mg PO DAILY #10 tab Is patient prescribed a controlled substance at d/c from ED?: No Referrals: Henry Echols MD [Primary Care Provider] - 1-2 days Time of Disposition: 13:02
[2020-12-12 12:10] LABS: ALT 22 U/L (4-34); AST 27 U/L (14-36); African American GFR (CKD) >90 (>60 ml/min/1.73 sqM); Albumin 4.3 g/dL (3.5-5.0); Alkaline Phosphatase 98 U/L (38-126); Anion Gap 10 mmol/L; Blood Urea Nitrogen 11 mg/dL (7-17); Calcium 10.2 mg/dL (8.4-10.2); Carbon Dioxide 22 mmol/L (22-30); Chloride 102 mmol/L (98-107); Glucose 131 mg/dL (74-99); Magnesium 2.2 mg/dL (1.6-2.3); Non-African American GFR(CKD) 80 (>60 ml/min/1.73 sqM); Potassium 4.5 mmol/L (3.5-5.1); Sodium 134 mmol/L (137-145); Total Bilirubin 0.3 mg/dL (0.2-1.3); Total Protein 7.2 g/dL (6.3-8.2)
[2020-12-12 12:17] LABS: INR 0.9 (<1.2); Partial Thromboplastin Time 22.4 sec (22.0-30.0)
[2020-12-12 12:24] LABS: Basophils # (A) 0.1 k/uL (0-0.2); Basophils % (A) 1 %; Eosinophils # (A) 0.1 k/uL (0-0.7); Eosinophils % (A) 1 %; HCT 46.9 % (34.0-46.0); HGB 15.7 gm/dL (11.4-16.0); Lymphocytes # (A) 1.3 k/uL (1.0-4.8); Lymphocytes % (A) 14 %; MCH 31.1 pg (25.0-35.0); MCHC 33.5 g/dL (31.0-37.0); MCV 93.1 fL (80.0-100.0); Mean Platelet Volume 6.2; Monocytes # (A) 0.4 k/uL (0-1.0); Monocytes % (A) 4 %; Neutrophils # (A) 7.5 k/uL (1.3-7.7); Neutrophils % (A) 79 %; RBC 5.03 m/uL (3.80-5.40); RDW 13.1 % (11.5-15.5); WBC 9.5 k/uL (3.8-10.6)
--- NOTE | 2020-12-12 12:47 | XR ---
EXAMINATION TYPE: XR chest 2V DATE OF EXAM: 12/12/2020 COMPARISON: NONE HISTORY: 75 years Female. STUDY INDICATION GIVEN: Chest Pain . TECHNIQUE: Frontal lateral chest radiograph IMPRESSION: No focal airspace disease, pneumothorax or pleural effusion. Mild prominence of the interstitium is noted, nonspecific may represent reactive airway disease, atyp ical pneumonia or mild pulmonary edema. There is a 0.5 cm nodule in the right upper lobe and a 0.4 nodule in the left upper lobe, both nodule s are of increased density and likely related to granulomatous infection, the need for CT of the thor ax should be determined on clinical basis. No pneumothorax or pleural effusion. The heart is normal in size. No acute osseous abnormality.
[2020-12-12 13:04] LABS: Platelet Count 1205 k/uL (150-450)
[2020-12-12 13:17] VITALS: BP 145/70; PULSE 93
== END 2020-12-12 14:42 | disposition home or self-care (01) ==
LOC: EC 11:12
DX: I16.0 Hypertensive urgency (principal); Z79.899 Other long term (current) drug therapy; Z82.49 Family history of ischemic heart disease and other diseases of the circulatory system
CPT/HCPCS: 36415; 93005; 80053; 83735; 84484; 85025; 85610; 85730; 71046; 96374; 99284; J0360

== ENCOUNTER → 2020-12-23 | Outpatient (CLI) | payer MEDICARE ==
--- NOTE | 2020-12-23 13:31 | ECHOF ---
Referral Reason:I10 hypertension MEASUREMENTS -------- HEIGHT: 132.1 cm WEIGHT: 61.7 kg BP: IVSd: 1.3 cm (0.6 - 1.1) LVIDd: 3.8 cm (3.9 - 5.3) LVPWd: 0.9 cm (0.6 - 1.1) IVSs: 1.3 cm LVIDs: 2.1 cm LVPWs: 1.0 cm LAESV Index (A-L): 25.17 ml/m Ao Diam: 2.6 cm (2.0 - 3.7) AV Cusp: 1.4 cm (1.5 - 2.6) LA Diam: 3.6 cm (2.7 - 3.8) MV E Cortez: 0.62 m/s MV A Cortez: 0.82 m/s MV E/A Ratio: 0.75 RAP: 5.00 mmHg RVSP: 38.34 mmHg FINDINGS -------- Sinus rhythm. This was a technically good study. The left ventricular size is normal. There is mild concentric left ventricular hypertrophy. Overa ll left ventricular systolic function is low-normal with, an EF between 50 - 55 %. The right ventricle is normal in size. Normal LA size by volume 22+/-6 ml/m2. The right atrial size is normal. There is mild aortic valve sclerosis. There is no evidence of aortic regurgitation. Mild mitral regurgitation is present. Mild tricuspid regurgitation present. There is mild pulmonary hypertension. The right ventricular systolic pressure, as measured by Doppler, is 38.34mmHg. There is no pulmonic regurgitation present. There is no pericardial effusion. CONCLUSIONS -------- 1. The left ventricular size is normal. 2. There is mild concentric left ventricular hypertrophy. 3. Overall left ventricular systolic function is low-normal with, an EF between 50 - 55 %. 4. The right ventricle is normal in size. 5. Normal LA size by volume 22+/-6 ml/m2. 6. The right atrial size is normal. 7. There is mild aortic valve sclerosis. 8. Mild mitral regurgitation is present. 9. Mild tricuspid regurgitation present. 10. There is mild pulmonary hypertension. 11. The right ventricular systolic pressure, as measured by Doppler, is 38.34mmHg. 12. There is no pulmonic regurgitation present. 13. There is no pericardial effusion. ORDER CHECKER: Soha Evangelista RDCS
== END | disposition home or self-care (01) ==
LOC: RADECHMAIN 11:11
PROVIDERS: ATTEND Family Medicine
DX: I08.8 Other rheumatic multiple valve diseases (principal); I27.20 Pulmonary hypertension, unspecified
CPT/HCPCS: 93306

== ENCOUNTER 2021-02-06 18:09 | Emergency (ER) | payer MEDICARE ==
[2021-02-06 18:34] VITALS: TEMP 98
--- NOTE | 2021-02-06 18:36 | ED ---
General Adult HPI - General Chief complaint: Recheck/Abnormal Lab/Rx Stated complaint: pill stuck in throat Time Seen by Provider: 02/06/21 18:16 Source: patient Mode of arrival: ambulatory - History of Present Illness Initial comments: 75 year-old female patient presents to the emergency department for evaluation of foreign body sensation to the throat. States she took her lisinopril about two hours ago and she feels like it is stuck in her throat. She did try drinking water and eating shredded wheat did not help. She denies any current difficulty swallowing. States she just started taking the medication about a week ago. She denies any pain to the throat. Denies vomiting. - Related Data Home Medications Medication Instructions Recorded Confirmed Aspirin EC [Ecotrin Low Dose] 81 mg PO DAILY 12/12/20 02/04/21 Cholecalciferol [Vitamin D3 (25 50 mcg PO DAILY 12/12/20 02/04/21 Mcg = 1000 Iu)] Vit C/E/Zn/Coppr/Lutein/Zeaxan 3 cap PO DAILY 12/12/20 02/04/21 [Preservision Areds 2 Softgel] amLODIPine [Norvasc] 5 mg PO QAM 02/04/21 02/04/21 lisinopriL [Zestril] 5 mg PO HS 02/04/21 02/04/21 Allergies Allergy/AdvReac Type Severity Reaction Status Date / Time No Known Allergies Allergy Verified 02/04/21 12:25 Review of Systems ROS Statement: Those systems with pertinent positive or pertinent negative responses have been documented in the HPI. ROS Other: All systems not noted in ROS Statement are negative. Past Medical History Past Medical History: Hypertension Additional Past Medical History / Comment(s): Elevated platelet count,lydia macu lar degeneration History of Any Multi-Drug Resistant Organisms: None Reported Past Surgical History: Cholecystectomy, Hysterectomy Additional Past Surgical History / Comment(s): partial Vaginal hysterectomy for prolapse in 2009. Colonoscopy 2009,lydia cataracts Past Anesthesia/Blood Transfusion Reactions: No Reported Reaction Past Psychological History: No Psychological Hx Reported Smoking Status: Never smoker Past Alcohol Use History: None Reported Past Drug Use History: None Reported - Past Family History Father Family Medical History: Myocardial Infarction ([place]) Mother Additional Family Medical History / Comment(s): Heart condition that requires a pacemaker. Sister(s) Family Medical History: Cancer Additional Family Medical History / Comment(s): Heart problems-pacemaker. Ovarian cancer. General Exam General appearance: alert, in no apparent distress, other (This is a well- developed, well-nourished adult female patient in no acute distress.) ENT exam: Present: normal exam, normal oropharynx, mucous membranes moist Respiratory exam: Present: normal lung sounds bilaterally. Absent: respiratory distress, wheezes, rales, rhonchi, stridor Cardiovascular Exam: Present: regular rate, normal rhythm, normal heart sounds. Absent: systolic murmur, diastolic murmur, rubs, gallop, clicks Neurological exam: Present: alert, oriented X3, CN II-XII intact Psychiatric exam: Present: normal affect, normal mood Skin exam: Present: warm, dry, intact, normal color. Absent: rash Course Vital Signs 02/06/21 02/06/21 02/06/21 18:23 19:00 20:03 Temperature 98 F Pulse Rate 85 99 Respiratory 18 17 Rate Blood Pressure 183/77 156/91 156/91 O2 Sat by Pulse 94 L 99 Oximetry Medical Decision Making - Medical Decision Making 75 year-old female patient presented for evaluation of pill stuck in her throat. Physical examination was unremarkable. Soft tissue neck x-ray negative. Patient was given a hot drink and she is tolerating oral intake without difficulty. She is breathing without difficulty. She is given GI cocktail to soothe her symptoms. She'll be discharged follow-up with ENT specialist for further evaluation as soon as possible. Return parameters were discussed in detail. She verbalizes understanding and agrees with this plan. Case discussed with my attending Dr. Khan. - Radiology Data Radiology results: report reviewed, image reviewed 2 views of the neck are obtained. Report reviewed in its entirety. Impression by Dr. Salvador shows negative cervical soft tissue exam. Disposition Clinical Impression: Foreign body sensation in throat Disposition: HOME SELF-CARE Condition: Good Instructions (If sedation given, give patient instructions): Foreign Body in Pharynx (ED) Additional Instructions: Follow up with your primary care physician for recheck in 1-2 days. Follow-up with ENT for further evaluation difficulty swallowing Return for any new, worsening, or concerning symptoms. Is patient prescribed a controlled substance at d/c from ED?: No Referrals: Henry Echols MD [Primary Care Provider] - 1-2 days Navarro Jackson DO [Doctor of Osteopathic Medicine] - 1-2 days Time of Disposition: 19:45
[2021-02-06 19:00] VITALS: BP 156/91
--- NOTE | 2021-02-06 19:36 | XR ---
EXAMINATION TYPE: XR soft tissue neck DATE OF EXAM: 02/06/2021 COMPARISON: NONE HISTORY: Foreign body sensation TECHNIQUE: 2 views FINDINGS: Epiglottis is normal. Prevertebral soft tissues appear normal. Tonsils and adenoids appear normal. Subglottic trachea appears normal. IMPRESSION: Negative cervical soft tissue exam.
[2021-02-06] MEDS ORDERED: MAG HYDROX/AL HYDROX/SIMETH 30 ML, HYOSCYAMINE ELIXIR 10 ML, LIDOCAINE VISCOUS 2% 10 ML PO STA ×3 (19:59)
[2021-02-06 20:05] VITALS: PULSE 99; RESP 17
== END 2021-02-06 20:04 | disposition home or self-care (01) ==
LOC: EC 18:09
DX: T17.208A Unspecified foreign body in pharynx causing other injury, initial encounter (principal); I10 Essential (primary) hypertension; Z79.899 Other long term (current) drug therapy
CPT/HCPCS: 70360; 99283

== ENCOUNTER 2021-02-10 06:09 | Day surgery (SDC) | payer MEDICARE ==
[2021-02-04 12:33] VITALS: BMI 27.1
[~2021-02-10 06:09] MED LIST: LACTATED RINGERS 1,000 ML IV SCH; LIDOCAINE 1% (10MG/ML) FOR IV START INTRADERMA PRN
[2021-02-10 06:49] VITALS: TEMP 97.5
[2021-02-10] MEDS ORDERED: LACTATED RINGERS 1,000 ML IV ONE (06:49)
[2021-02-10] MEDS ORDERED: MIDAZOLAM 2 MG/2 ML VIAL ONE (07:00)
[2021-02-10] MEDS ORDERED: LIDOCAINE 1% INJ 10MG/ML (20 ML MDV) ONE (07:00)
[2021-02-10] MEDS ORDERED: fentaNYL (PF) 50 MCG/ML 2 ML AMP ONE (07:00)
[2021-02-10] MEDS ORDERED: PROPOFOL 10 MG/ML 20 ML VIAL IV ONE (07:00)
[2021-02-10] MEDS ORDERED: LIDOCAINE 2% INJ 20 MG/ML SQ ONE (07:11)
[2021-02-10 07:28] VITALS: RESP 14
[2021-02-10 07:47] VITALS: BP 129/75; PULSE 73
[2021-02-10 08:01] LABS: Basophils % (A) 0 %; Eosinophils # (A) 0.1 k/uL (0-0.7); Eosinophils % (A) 1 %; HCT 44.4 % (34.0-46.0); HGB 15.1 gm/dL (11.4-16.0); Lymphocytes # (A) 1.3 k/uL (1.0-4.8); Lymphocytes % (A) 15 %; MCH 31.3 pg (25.0-35.0); MCHC 34.1 g/dL (31.0-37.0); MCV 91.8 fL (80.0-100.0); Mean Platelet Volume 6.6; Monocytes # (A) 0.6 k/uL (0-1.0); Monocytes % (A) 7 %; Neutrophils # (A) 6.7 k/uL (1.3-7.7); Neutrophils % (A) 76 %; RBC 4.84 m/uL (3.80-5.40); RDW 12.2 % (11.5-15.5); WBC 8.9 k/uL (3.8-10.6)
[2021-02-10 08:04] LABS: Reticulocyte % 1.9 % (0.5-2.0)
[2021-02-10 08:07] LABS: Platelet Count 1228 k/uL (150-450)
--- NOTE | 2021-02-10 11:23 | PCN ---
PROCEDURE NOTE DATE OF PROCEDURE: 02/10/2021 PREOPERATIVE DIAGNOSIS: Thrombocytosis. POSTOPERATIVE DIAGNOSIS: Thrombocytosis. PROCEDURE: Bone marrow aspirate and biopsy. SITE: Right iliac crest. DETAILS: Utilizing sterile technique, the skin overlying the right iliac crest was prepared with Betadine and alcohol. After adequate sterile draping, local anesthesia with 1% lidocaine and systemic sedation, a size 11 4-inch Jamshidi needle was utilized to access the periosteum with ease. A total of 16 mL of aspirate as well as 2.5 cm bone core biopsies were obtained. The patient tolerated the procedure very well. There was no immediate procedure-related complication. Total blood loss less than 1 mL. Results pending. MMODL / IJN: [id number] /
== END 2021-02-10 08:12 | disposition home or self-care (01) ==
LOC: OR 06:09
PROVIDERS: ATTEND Internal Medicine Hematology & Oncology
DX: D47.3 Essential (hemorrhagic) thrombocythemia (principal)
CPT/HCPCS: 38222; 85025; 85045; J2001 ×2; J2250; J3010; J2704

== ENCOUNTER → 2021-03-25 | Outpatient (CLI) | payer MEDICARE ==
--- NOTE | 2021-03-25 11:08 | FL ---
EXAMINATION TYPE: FL barium swallow DATE OF EXAM: 03/25/2021 CLINICAL HISTORY: Dysphagia. Pills getting stuck. TECHNIQUE: A double contrast esophagram is performed utilizing air and barium. A total of 30 second s of fluoroscopic time was utilized during procedure and 39 images obtained COMPARISON: None FINDINGS: The esophagus shows normal motility and emptying into the stomach. A tiny diverticulum prox imal esophagus measuring under 1.0 cm in size is noted in the lower cervical level. No evidence of fi xed hiatal hernia or stricture noted. No significant gastroesophageal reflux was seen during real kalyani e performance of this study. IMPRESSION: Tiny proximal proximal esophageal diverticulum otherwise unremarkable study.
== END | disposition home or self-care (01) ==
LOC: RADUSWWP 09:44
PROVIDERS: ATTEND Otolaryngology
DX: K22.5 Diverticulum of esophagus, acquired (principal)
CPT/HCPCS: 74220

== ENCOUNTER → 2021-04-19 | Outpatient (CLI) | payer MEDICARE ==
[2021-04-19 16:00] VITALS: BP 136/80; PULSE 90; RESP 18; TEMP 97.3
--- NOTE | 2021-04-19 16:51 | P.HPOB ---
History of Present Illness H&P Date: 04/19/21 Chief Complaint: The patient is here for her routine gynecologic exam. This is a 75-year-old with an LMP of 2009. The patient is status post vaginal hysterectomy for benign reasons. She is without gynecologic complaints. She states she had a recent bone density test done through her PCP at [facility]. She believes that showed osteoporosis and she was offered Prolia by her PCP. The patient has declined osteoporosis treatment with prescription medication. She states she took Fosamax for one year many years ago. Review of Systems The patient has lost 16 pounds over the last year. She states this has been intentional and has been through diet and exercise. She denies respiratory, cardiac, or G.I. problems. Past Medical History Past Medical History: Hypertension Additional Past Medical History / Comment(s): Elevated platelet count,lydia macular degeneration. Osteoporosis(used Fosamax for 1yr). 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 History of Any Multi-Drug Resistant Organisms: None Reported Past Surgical History: Cholecystectomy, Hysterectomy Additional Past Surgical History / Comment(s): Vaginal hysterectomy for prolapse in 2009. Colonoscopy 2009, lydia cataracts. Bone marrow biopsy. Past Anesthesia/Blood Transfusion Reactions: No Reported Reaction Past Psychological History: No Psychological Hx Reported Smoking Status: Never smoker Past Alcohol Use History: None Reported Past Drug Use History: None Reported Additional History: She has been since 1970 and is not sexually active. She does bookkeeping and also volunteers. - Past Family History Father Family Medical History: Myocardial Infarction ([place]) Mother Additional Family Medical History / Comment(s): Heart condition that requires a pacemaker. Sister(s) Family Medical History: Cancer Additional Family Medical History / Comment(s): Heart problems-pacemaker. Ovarian cancer. Medications and Allergies Home Medications Medication Instructions Recorded Confirmed Type Aspirin EC [Ecotrin Low Dose] 81 mg PO DAILY 12/12/20 04/19/21 History Vit C/E/Zn/Coppr/Lutein/Zeaxan 3 cap PO DAILY 12/12/20 04/19/21 History [Preservision Areds 2 Softgel] amLODIPine [Norvasc] 5 mg PO QAM 02/04/21 04/19/21 History Losartan [Cozaar] 50 mg PO HS 04/19/21 04/19/21 History Allergies Allergy/AdvReac Type Severity Reaction Status Date / Time No Known Allergies Allergy Verified 04/19/21 15:54 Exam Vital Signs Temp Pulse Resp BP Pulse Ox 04/19/21 15:54 97.3 F L 90 18 136/80 98 Intake and Output 04/19/21 04/19/21 04/19/21 06:59 14:59 22:59 Other: Weight 58.06 kg Height 4 feet 10 inches, weight 128 pounds, BMI 26.8. This is a short statured, well-nourished white female who is alert and oriented times 3 in no acute distress. HEENT: Within normal limits. NECK: Supple without mass or thyromegaly. CHEST AND LUNGS: Clear to auscultation. HEART: Regular rate and rhythm. BREASTS: Are without mass or discharge. AXILLARY EXAM: Negative for adenopathy. BACK: Negative for CVA tenderness. ABDOMEN: Soft, nontender, without palpable masses. PELVIC EXAM: External genitalia appears normal with moderate atrophy. Vagina appears normal is moderate atrophy. There is a small grade 1-2 cystocele which is stable. There is no other evidence of prolapse. Bimanual examination is negative for mass or tenderness. RECTAL EXAM: Rectovaginal exam is negative for mass or tenderness and is negative for occult blood. EXTREMITIES: Nontender. IMPRESSION: 1. 75-year-old menopausal female who is status post vaginal hysterectomy for benign reasons with a stable grade 1-2 cystocele. 2. History of osteoporosis. The patient is declining prescription medication, which has been offered by her PCP. 3. Family history of ovarian cancer in her sister. PLAN: 1. Pap smears have been discontinued. 2. Self breast awareness was discussed with the patient. We have also discussed symptoms associated with inflammatory breast cancer. 3. Screening mammogram was done on 03/07/2021 at [facility] and this was benign. She will repeat this after 1 year. 4. Osteoporosis management was discussed. I have stressed the importance of adequate calcium, vitamin D and regular exercise. Recommended amounts of cata cium and vitamin D were also discussed. She again is declining prescription medication for her osteoporosis. We have discussed her increased risk for bone fracture. I have recommended that she take precautions to avoid falling. She will again discuss medication treatment for this with her PCP. 5. I have recommended screening colonoscopy since it has been about 11 years since her last one. She will also discuss this with Dr. Echols, her PCP. 6. Pelvic ultrasound was recommended because of her family history of ovarian cancer. The order slip was given to the patient for this. 7. She has not received a Covid vaccination. I have recommended that she get vaccinated for Covid since this can decrease her risks of problems associated with Covid. She understands this and will consider it. 8. She was advised to return in one year for her annual well woman exam.
== END ==
LOC: WWCWWP 15:43
PROVIDERS: ATTEND Obstetrics & Gynecology
DX: Z01.419 Encounter for gynecological examination (general) (routine) without abnormal findings (principal); I10 Essential (primary) hypertension; Z90.711 Acquired absence of uterus with remaining cervical stump; Z87.39 Personal history of other diseases of the musculoskeletal system and connective tissue; Z80.41 Family history of malignant neoplasm of ovary; Z79.899 Other long term (current) drug therapy

== ENCOUNTER → 2021-11-22 | Outpatient (CLI) | payer MEDICARE ==
--- NOTE | 2021-11-23 07:51 | US ---
EXAMINATION TYPE: US pelvic complete DATE OF EXAM: 11/22/2021 COMPARISON: NONE CLINICAL HISTORY: 75-year-old female Z80.41 FH OVARIAN CA. TECHNIQUE: Transabdominal (TA). Date of LMP: Post menopausal patient with family history of ovarian cancer. Patient has history of h ysterectomy. FINDINGS: EXAM MEASUREMENTS: Uterus: Surgically absent Right Ovary: 1.4 x 0.9 x 0.9 cm for volume of 0.6 mL Left Ovary: 1.4 x 0.8 x 1.2 cm for a volume of 0.7 mL 1. Uterus: Surgically absent 2. Endometrium: Surgically absent 3. Right Ovary: wnl 4. Left Ovary: wnl 5. Bilateral Adnexa: wnl 6. Posterior cul-de-sac: wnl IMPRESSION: Status post hysterectomy. Small postmenopausal bilateral ovaries are seen measuring up to 0.7 mL in s ize.
--- NOTE | 2021-11-23 13:26 | P.PN ---
Progress Note - Text Progress Note Date: 11/23/21 OUTPATIENT FOLLOW-UP NOTE TEST(S)/RESULTS: Pelvic ultrasound done on 11/22/2021 was normal with no signs of ovarian masses. METHOD OF NOTIFICATION: The patient was notified by phone. PATIENT COMMENTS: DIAGNOSIS: Normal pelvic ultrasound done because of her sister's history of ovarian cancer. DISCUSSION: PLAN: Continue yearly pelvic ultrasounds. She will return in 2022 when she is due for her annual well woman examination.
== END | disposition home or self-care (01) ==
LOC: RADUSWWP 16:06
PROVIDERS: ATTEND Obstetrics & Gynecology
DX: Z78.0 Asymptomatic menopausal state (principal); Z80.41 Family history of malignant neoplasm of ovary; Z90.710 Acquired absence of both cervix and uterus
CPT/HCPCS: 76856

== ENCOUNTER 2022-08-26 08:39 | Emergency (ER) | payer MEDICARE ==
[2022-08-26 08:49] VITALS: BP 164/87; PULSE 83; RESP 18; TEMP 97.7
--- NOTE | 2022-08-26 09:14 | ED ---
General Adult HPI - General Chief complaint: Back Pain/Injury Stated complaint: Lower back pain Time Seen by Provider: 08/26/22 08:45 Source: patient, family, RN notes reviewed, old records reviewed Mode of arrival: wheelchair Limitations: physical limitation - History of Present Illness Initial comments: This is a 76-year-old female presents emergency Department complaining of chronic back pain. Patient states gotten worse over the last couple days she's [address] Curry and has an MRI scheduled. Patient states she takes Aleve has not helped. Patient states she has a little bit of radiation down the legs in the morning but if she walks around or gets better. Patient denies any fever chills patient denies any recent trauma or injury. Patient denies any numbness weakness. Patient denies any problem with urination. - Related Data Home Medications Medication Instructions Recorded Confirmed Aspirin EC [Ecotrin Low Dose] 81 mg PO DAILY 12/12/20 04/19/21 Vit C/E/Zn/Coppr/Lutein/Zeaxan 3 cap PO DAILY 12/12/20 04/19/21 [Preservision Areds 2 Softgel] amLODIPine [Norvasc] 5 mg PO QAM 02/04/21 04/19/21 Losartan [Cozaar] 50 mg PO HS 04/19/21 04/19/21 Previous Rx's Medication Instructions Recorded predniSONE [Deltasone] 40 mg PO DAILY #8 tab 08/26/22 Allergies Allergy/AdvReac Type Severity Reaction Status Date / Time No Known Allergies Allergy Verified 08/26/22 08:49 Review of Systems ROS Statement: Those systems with pertinent positive or pertinent negative responses have been documented in the HPI. ROS Other: All systems not noted in ROS Statement are negative. Past Medical History Past Medical History: Hypertension Additional Past Medical History / Comment(s): Elevated platelet count,lydia macular degeneration. Osteoporosis(used Fosamax for 1yr). 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 History of Any Multi-Drug Resistant Organisms: None Reported Past Surgical History: Cholecystectomy, Hysterectomy Additional Past Surgical History / Comment(s): Vaginal hysterectomy for prolapse in 2009. Colonoscopy 2009, lydia cataracts. Bone marrow biopsy. Past Anesthesia/Blood Transfusion Reactions: No Reported Reaction Past Psychological History: No Psychological Hx Reported Smoking Status: Never smoker Past Alcohol Use History: None Reported Past Drug Use History: None Reported - Past Family History Father Family Medical History: Myocardial Infarction (ME) Mother Additional Family Medical History / Comment(s): Heart condition that requires a pacemaker. Sister(s) Family Medical History: Cancer Additional Family Medical History / Comment(s): Heart problems-pacemaker. Ovarian cancer. General Exam - General Exam Comments Initial Comments: GENERAL: Patient is well-developed and well-nourished. Patient is nontoxic and well- hydrated and is in mild distress. ENT: Neck is soft and supple. No significant lymphadenopathy is noted. Oropharynx is clear. Moist mucous membranes. Neck has full range of motion without eliciting any pain. EYES: The sclera were anicteric and conjunctiva were pink and moist. Extraocular movements were intact and pupils were equal round and reactive to light. Eyelids were unremarkable. SKIN: Skin is clear with no lesions or rashes and otherwise unremarkable. NEUROLOGIC: Patient is alert and oriented x3. Cranial nerves II through XII are grossly intact. Motor and sensory are also intact. Normal speech, volume and content. Symmetrical smile. MUSCULOSKELETAL: Normal extremities with adequate strength and full range of motion. Patient has no tenderness on palpation. PSYCHIATRIC: Normal psychiatric evaluation. Limitations: physical limitation Course Vital Signs 08/26/22 08:43 Temperature 97.7 F Pulse Rate 83 Respiratory 18 Rate Blood Pressure 164/87 O2 Sat by Pulse 98 Oximetry Medical Decision Making - Medical Decision Making Was pt. sent in by a medical professional or institution (XIAO Jean, STREET CLEANING EQUIPMENT OPERATOR, urgent care, hospital, or senior care...) When possible be specific @ -No Did you speak to anyone other than the patient for history (EMS, parent, family, police, friend...)? What history was obtained from this source @ -No Did you review nursing and triage notes (agree or disagree)? Why? @ -I reviewed and agree with nursing and triage notes Were old charts reviewed (outside hosp., previous admission, EMS record, old EKG, old radiological studies, urgent care reports/EKG's, senior care records)? Report findings @ -No old charts were reviewed Differential Diagnosis (chest pain, altered mental status, abdominal pain women, abdominal pain men, vaginal bleeding, weakness, fever, dyspnea, syncope, headache, dizziness, GI bleed, back pain, seizure, CVA, palpatations, mental health, musculoskeletal)? @ -Differential Musculoskeletal Muscular strain, contusion, ligament sprain, fracture, arthritis, septic arthritis, bursitis, cellulitis, muscle spasm, nerve compression, DVT, arterial occlusion, herpes zoster, electrolyte abnormality, tumor.... This is not meant to be in all inclusive list EKG interpreted by me (3pts min.). @ -As above X-rays interpreted by me (1pt min.). @ -None done CT interpreted by me (1pt min.). @ -None done U/S interpreted by me (1pt. min.). @ -None done What testing was considered but not performed or refused? (CT, X-rays, U/S, labs)? Why? @ -None What meds were considered but not given or refused? Why? @ -None Did you discuss the management of the patient with other professionals (professionals i.e. , PA, STREET CLEANING EQUIPMENT OPERATOR, lab, RT, psych nurse, director of social media marketing, mechanical maintenance supervisor, teacher, chemistry technical officer, director case)? Give summary @ -No Was smoking cessation discussed for >3mins.? @ -No Was critical care preformed (if so, how long)? @ -No Were there social determinants of health that impacted care today? How? (Homelessness, low income, unemployed, alcoholism, drug addiction, transportation, low edu. Level, literacy, decrease access to med. care, alf, rehab)? @ -No Was there de-escalation of care discussed even if they declined (Discuss DNR or withdrawal of care, Hospice)? DNR status @ -No What co-morbidities impacted this encounter? (DM, HTN, Smoking, COPD, CAD, Cancer, CVA, ARF, Chemo, Hep., AIDS, mental health diagnosis, sleep apnea, morbid obesity)? @ -None Was patient admitted / discharged? Hospital course, mention meds given and route, prescriptions, significant lab abnormalities, going to OR and other pertinent info. @ -I spoke with the patient about following up to get her MRI as well as taking prednisone. Patient was in agreement with a short course of prednisone to see if it relieved her pain she was not looking for any narcotics and did not want to take tramadol. Undiagnosed new problem with uncertain prognosis? @ -No Drug Therapy requiring intensive monitoring for toxicity (Heparin, Nitro, Insulin, Cardizem)? @ -No Were any procedures done? @ -No Diagnosis/symptom? @ -Sciatica Acute, or Chronic, or Acute on Chronic? @ -Acute Uncomplicated (without systemic symptoms) or Complicated (systemic symptoms)? @ -Uncomplicated Side effects of treatment? @ -No Exacerbation, Progression, or Severe Exacerbation? @ -No Poses a threat to life or bodily function? How? (Chest pain, USA, ME, pneumonia, PE, COPD, DKA, ARF, appy, cholecystitis, CVA, Diverticulitis, Homicidal, Suicidal, threat to staff... and all critical care pts) @ -No Disposition Clinical Impression: Sciatica Disposition: HOME SELF-CARE Instructions (If sedation given, give patient instructions): Sciatica (ED) Prescriptions: predniSONE [Deltasone] 40 mg PO DAILY #8 tab Is patient prescribed a controlled substance at d/c from ED?: No Referrals: Henry Echols MD [Primary Care Provider] - 1-2 days Time of Disposition: 09:11
== END 2022-08-26 09:38 | disposition home or self-care (01) ==
LOC: EC 08:39
DX: M54.40 Lumbago with sciatica, unspecified side (principal); I10 Essential (primary) hypertension; Z79.82 Long term (current) use of aspirin; Z79.899 Other long term (current) drug therapy; Z90.49 Acquired absence of other specified parts of digestive tract
CPT/HCPCS: 99283

== ENCOUNTER → 2022-12-05 | Outpatient (CLI) | payer MEDICARE ==
--- NOTE | 2022-12-05 15:45 | MR ---
EXAMINATION TYPE: MR lumbar spine wo con DATE OF EXAM: 12/05/2022 2:54 PM COMPARISON: None. CLINICAL INDICATION: Female, 76 years old with history of M47.817 SPONDYLS W/O MYELOPATHY OR RADICULO SHAHEEN; PHH, Low back pain that radiates down both legs. TECHNIQUE: Multi planar, multi sequence imaging was performed utilizing: T1-weighted, T2-weighted, a nd turbo inversion recovery imaging of the lumbar spine. IV Contrast: None. FINDINGS: Alignment: The lumbar vertebral bodies have preserved heights with grade 1 anterolisthesis of L4 on L 5. Cord: The conus medullaris and the distal spinal cord appear unremarkable with regards to their signa l intensity and morphology. Bones/Discs: Multilevel degeneration changes with osteophyte formation and disc space narrowing. Mellisa c end plate changes are most pronounced at L5-S1. There are scattered facet joint arthropathy present . T12-L1: No evidence of significant spinal canal stenosis or neural foraminal stenosis. L1-L2: No evidence of significant spinal canal stenosis or neural foraminal stenosis. L2-L3: No evidence of significant spinal canal stenosis or neural foraminal stenosis. L3-L4: Disc bulge and facet joint arthropathy result in mild spinal canal and mild bilateral neural f oraminal stenosis. L4-L5: Disc uncovering from grade 1 anterolisthesis and facet joint arthropathy with moderate to tawny re spinal canal stenosis and moderate to severe bilateral neural foraminal stenosis. L5-S1: The disc is rounded posterior morphology without significant spinal canal stenosis. Facet join t arthropathy with moderate to severe neural foraminal stenosis. No significant spinal canal or neural foraminal stenosis in the remainder of the visualized levels. Other findings: None. IMPRESSION: 1. Multilevel degeneration changes with grade 1 anterolisthesis of L4 and L5 with moderate to severe spinal canal stenosis and neural foraminal stenosis. 2. Large severe bilateral L5-S1 neural foraminal stenosis secondary to facet joint arthropathy.
== END | disposition home or self-care (01) ==
LOC: RADMRIMAIN 13:31
PROVIDERS: ATTEND Physical Medicine & Rehabilitation
DX: M47.817 Spondylosis without myelopathy or radiculopathy, lumbosacral region (principal); M43.16 Spondylolisthesis, lumbar region; M99.73 Connective tissue and disc stenosis of intervertebral foramina of lumbar region
CPT/HCPCS: 72148

== ENCOUNTER → 2023-06-16 | Outpatient (CLI) | payer MEDICARE ==
[2023-06-17 07:45] LABS: Basophils # (A) 0.06 X 10*3/uL (0.00-0.10); Basophils % (A) 0.6 %; Eosinophils # (A) 0.18 X 10*3/uL (0.04-0.35); Eosinophils % (A) 1.9 %; HGB 15.3 g/dL (12.0-15.0); Lymphocytes # (A) 1.67 X 10*3/uL (0.90-5.00); MCH 29.9 pg (27.0-32.0); MCHC 31.9 g/dL (32.0-37.0); MCV 93.8 FL (80.0-97.0); Mean Platelet Volume 8.8 FL (9.5-12.2); Monocytes # (A) 0.55 X 10*3/uL (0.20-1.00); Monocytes % (A) 5.9 %; NRBC Per 100 WBC 0 X 10*3/uL (0.00-0.01); Neutrophils # (A) 6.81 X 10*3/uL (1.80-7.70); Neutrophils % (A) 73.3 %; Platelet Count 941 X 10*3/uL (140-440); RBC 5.12 X 10*6/uL (4.10-5.20); RBC Morphology Normal (Normal); RDW 12.9 % (11.5-14.5)
[2023-06-17 09:05] LABS: ALT 11 U/L (8-44); AST 27 U/L (13-35); Albumin 4.2 g/dL (3.8-4.9); Albumin/Globulin Ratio 1.56 Ratio (1.60-3.17); Alkaline Phosphatase 91 U/L (41-126); Blood Urea Nitrogen 13.6 mg/dL (9.0-27.0); Carbon Dioxide 22.2 mmol/L (21.6-31.8); Chloride 103 mmol/L (96-109); Chol/HDL Ratio 4.48 Ratio; Globulin 2.7 g/dL (1.6-3.3); Glucose 101 mg/dL (70-110); LDL Cholesterol,Calculated 152.3 mg/dL (0.0-131.0); Potassium 5.2 mmol/L (3.5-5.5); Sodium 139 mmol/L (135-145); Total Bilirubin 0.5 mg/dL (0.3-1.2); Total Protein 6.9 g/dL (6.2-8.2)
== END | disposition home or self-care (01) ==
LOC: LABWHC1 10:31
PROVIDERS: ATTEND Family Medicine
DX: E78.5 Hyperlipidemia, unspecified (principal)
CPT/HCPCS: 36415; 80053; 80061; 82306; 83036; 84443; 84481; 85025

== ENCOUNTER → 2024-08-26 | Outpatient (CLI) | payer MEDICARE ==
[2024-08-26 12:13] VITALS: BP 165/76; PULSE 97; RESP 16; TEMP 96.6
--- NOTE | 2024-08-26 13:04 | P.HPOB ---
History of Present Illness H&P Date: 08/26/24 Chief Complaint: The patient is here for her routine gynecologic exam. This is a 78-year-old G2, P2 with an LMP of 2009. She is status post vaginal hysterectomy for benign reasons. She is without gynecologic complaints. She states she will be due for her mammogram in November of this year. She states her PCP also recommended doing another bone density test and she does have an order slip for this. Review of Systems She has gained about 8 pounds over the past 3 years. She denies respiratory, cardiac, or GI problems. Past Medical History Past Medical History: Hypertension Additional Past Medical History / Comment(s): Elevated platelet count,lydia macular degeneration. Chronic back problems and tremor. Osteoporosis(used Fosamax for 1yr). 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 History of Any Multi-Drug Resistant Organisms: None Reported Past Surgical History: Cholecystectomy, Hysterectomy Additional Past Surgical History / Comment(s): Vaginal hysterectomy for prolapse in 2009. Colonoscopy 2009, lydia cataracts. Bone marrow biopsy. Spinal nerve ablation for chronic back pain Past Anesthesia/Blood Transfusion Reactions: No Reported Reaction Past Psychological History: No Psychological Hx Reported Smoking Status: Never smoker Past Alcohol Use History: None Reported Past Drug Use History: None Reported Additional History: She has been since 1970 and is not sexually active. 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 - Past Family History Father Family Medical History: Myocardial Infarction (VT) Mother Additional Family Medical History / Comment(s): Heart condition that requires a pacemaker. Sister(s) Family Medical History: Cancer Additional Family Medical History / Comment(s): Heart problems-pacemaker. Ovarian cancer. Medications and Allergies Home Medications Medication Instructions Recorded Confirmed Type Aspirin EC [Ecotrin Low Dose] 81 mg PO DAILY 12/12/20 08/26/24 History Vit C/E/Zn/Coppr/Lutein/Zeaxan 3 cap PO DAILY 12/12/20 08/26/24 History [Preservision Areds 2 Softgel] Carbidopa-Levodopa 10-100 mg 1 each PO DAILY 08/26/24 08/26/24 History [Sinemet 10-100 mg] Allergies Allergy/AdvReac Type Severity Reaction Status Date / Time No Known Allergies Allergy Verified 08/26/24 11:58 Exam Vital Signs Temp Pulse Resp BP Pulse Ox 08/26/24 12:05 96.6 F L 97 16 165/76 99 Intake and Output 08/25/24 08/26/24 08/26/24 22:59 06:59 14:59 Other: Weight 61.689 kg Height 4 feet 8 inches, weight 136 pounds, BMI 30.5. This is a short statured well-nourished white female who is alert and oriented times 3 in no acute distress. HEENT: Within normal limits. NECK: Supple without mass or thyromegaly. CHEST AND LUNGS: Clear to auscultation. HEART: Regular rate and rhythm. BREASTS: Are without mass or discharge. AXILLARY EXAM: Negative for adenopathy. BACK: Negative for CVA tenderness. ABDOMEN: Soft, mildly obese, nontender, without palpable masses. PELVIC EXAM: External genitalia appears normal with mild to moderate atrophy. Vagina appears normal with mild to moderate atrophy. There is a stable grade 1- 2 cystocele.. Bimanual examination is negative for mass or tenderness. RECTAL EXAM: Rectovaginal exam is negative for mass or tenderness and is negative for occult blood. EXTREMITIES: Nontender. IMPRESSION: 1. 78-year-old menopausal female status post vaginal hysterectomy for benign reasons, with stable grade 1-2 cystocele. 2. History of osteoporosis. She is declining prescription medication for this. 3. Family history of ovarian cancer in her sister. PLAN: 1. Pap smears have been discontinued. 2. Self breast awareness was discussed with the patient. We have also discussed symptoms associated with inflammatory breast cancer. 3. Screening mammograms are done at [facility]. She states she is due for one in November of this year. The order slip was given to the patient for this. 4. Osteoporosis management was discussed. I have stressed the importance of adequate calcium, vitamin D and regular exercise. Recommended amounts of calcium and vitamin D were also discussed. She again is declining prescription medication for osteoporosis. She states that her PCP recommended doing another bone density test and she states she has an order slip for this. She will do it at [facility]. 5. I have recommended a yearly pelvic ultrasound because of her sisters history of ovarian cancer. The order slip was given to the patient for this. 6. We have discussed her elevated blood pressure. She is currently not taking blood pressure medication. I recommend that she check her own blood pressures at home and follow-up with her PCP regarding. I recommend that she take blood pressure medication if her PCP is recommending this. 7. She was advised to return in one year for her annual well woman exam.
== END ==
LOC: WWCWWP 11:05
PROVIDERS: ATTEND Obstetrics & Gynecology
DX: Z01.419 Encounter for gynecological examination (general) (routine) without abnormal findings (principal); N81.10 Cystocele, unspecified; Z78.0 Asymptomatic menopausal state; Z90.710 Acquired absence of both cervix and uterus; M81.0 Age-related osteoporosis without current pathological fracture

== ENCOUNTER → 2024-09-16 | Outpatient (CLI) | payer MEDICARE ==
--- NOTE | 2024-09-16 15:03 | US ---
EXAMINATION TYPE: US pelvis complete transvag DATE OF EXAM: 09/16/2024 COMPARISON: US 11/22/2021 CLINICAL INDICATION: Female, 78 years old with history of Z80.41 FAMILY HISTORY OF MALIGNANT NEOPLASM OF OVA; Family history of ovarian cancer, partial hysterectomy TECHNIQUE: Transvaginal (TV) and Transabdominal (TA) . Transabdominal grayscale sonographic images of the pelvis were acquired. Transvaginal sonographic im ages were medically necessary to better assess the following anatomy: Ovaries Doppler imaging: Not performed. FINDINGS: Date of LMP: N/A EXAM MEASUREMENTS: Uterus: Surgically absent Endometrial Stripe: Surgically absent Right Ovary: 1.3 x 0.7 x 0.8 cm Left Ovary: Not visualized due to bowel gas. 1. Uterus: Surgically absent 2. Endometrium: Surgically absent 3. Right Ovary: Appears wnl, atrophic due to post-menopausal status. 4. Left Ovary: Not visualized due to bowel gas and atrophic size. 5. Bilateral Adnexa: wnl 6. Posterior cul-de-sac: No free fluid visualized. Exam limited by bowel gas. IMPRESSION: 1. No acute ultrasound abnormality pelvic ultrasound O-RADS [email or web address] [facility], Workstation: [id number], 09/16/2024 3:00 PM
--- NOTE | 2024-09-16 17:28 | P.PN ---
Progress Note - Text Progress Note Date: 09/16/24 OUTPATIENT FOLLOW-UP NOTE TEST(S)/RESULTS: Pelvic ultrasound done on 09/16/2024 was unremarkable with no evidence of any ovarian or pelvic masses. METHOD OF NOTIFICATION: The patient was notified by phone on 09/16/2024. PATIENT COMMENTS: She is happy to hear these results. DIAGNOSIS: Family history of ovarian cancer. Normal pelvic ultrasound. DISCUSSION: [] PLAN: She was advised to return in one year for her annual well woman exam. We will plan on repeating the pelvic ultrasound in 1 year.
== END | disposition home or self-care (01) ==
LOC: RADUSWWP 13:47
PROVIDERS: ATTEND Obstetrics & Gynecology
DX: Z80.41 Family history of malignant neoplasm of ovary (principal)
CPT/HCPCS: 76830; 76856